=== PATIENT | female | born 1940 | race Caucasian/White ===

== ENCOUNTER 2016-05-26 09:56 | Outpatient (CLI) | payer MEDICARE, OTHER | END 2016-05-26 09:57 | disposition home or self-care (01) | DX: I48.91 Unspecified atrial fibrillation (principal); I10 Essential (primary) hypertension; G61.9 Inflammatory polyneuropathy, unspecified ==

== ENCOUNTER 2016-05-31 06:46 | Outpatient (CLI) | payer MEDICARE, OTHER | END 2016-05-31 06:47 | disposition home or self-care (01) | DX: R31.9 Hematuria, unspecified (principal) ==

== ENCOUNTER 2016-06-18 11:17 | Outpatient (CLI) | payer MEDICARE, OTHER | END 2016-06-18 11:18 | disposition home or self-care (01) | DX: R31.9 Hematuria, unspecified (principal); N28.1 Cyst of kidney, acquired ==

== ENCOUNTER 2016-06-25 10:58 | Outpatient (CLI) | payer MEDICARE, OTHER ==
[2016-06-25] MEDS ORDERED: IOPAMIDOL-300 100 ML VIAL IVP ONE (12:12)
== END 2016-06-25 10:59 | disposition home or self-care (01) ==
DX: R31.9 Hematuria, unspecified (principal)
CPT/HCPCS: 74170; Q9967

== ENCOUNTER 2016-08-31 13:56 | Outpatient (CLI) | payer MEDICARE, OTHER ==
--- NOTE | 2016-09-02 18:00 | Mammography Report ---
DIGITAL SCREENING MAMMOGRAM: 08/31/2016 CLINICAL INDICATION: A 76-year-old with family history of breast cancer, for screening. COMPARISON: 07/2015, 03/2014, 12/2012, 11/2011, 08/2010, 08/2009, 08/2008, 06/2007, 06/2006. TECHNIQUE: Routine CC and MLO projections were obtained of the breasts. FINDINGS: The breasts again demonstrate scattered fibroglandular densities bilaterally. Coarse and p unctate, typically benign calcifications are present. No suspicious masses, clustered microcalcificat ions, or regions of architectural distortion are identified. IMPRESSION: BENIGN FINDINGS. RECOMMENDATION: ROUTINE ANNUAL SCREENING UNLESS OTHERWISE CLINICALLY INDICATED. BIRADS CATEGORY 2-BENIGN FINDINGS. STANDARD QUALIFYING STATEMENTS 1. This examination was reviewed with the aid of Computer-Aided Detection (CAD). 2. A negative or benign imaging report should not delay biopsy if clinically suspicious findings are present. Consider surgical consultation if warranted. More than 5% of cancers are not identified by i maging. 3. Dense breasts may obscure an underlying neoplasm. JOB #: [id number] EXT JOB #:[id number]
== END 2016-08-31 13:57 | disposition home or self-care (01) ==
LOC: DI.N 13:56
PROVIDERS: ATTEND Physician Assistant Medical
DX: Z12.31 Encounter for screening mammogram for malignant neoplasm of breast (principal); Z80.3 Family history of malignant neoplasm of breast
CPT/HCPCS: 77067

== ENCOUNTER 2016-09-21 11:50 | Outpatient (CLI) | payer MEDICARE, OTHER ==
[2016-09-21 20:07] LABS: THYROID STIMULATING HORMONE 0.18 uIU/mL (0.34-5.60)
== END 2016-09-21 11:51 | disposition home or self-care (01) ==
LOC: LAB.WCP 11:50
PROVIDERS: ATTEND Physician Assistant Medical
DX: I48.91 Unspecified atrial fibrillation (principal)
CPT/HCPCS: 36415; 84439; 84443

== ENCOUNTER 2016-11-25 11:00 | Outpatient (CLI) | payer MEDICARE, OTHER ==
[2016-11-25 20:10] LABS: THYROID STIMULATING HORMONE 0.25 uIU/mL (0.34-5.60)
== END 2016-11-25 11:01 | disposition home or self-care (01) ==
LOC: LAB.WCP 11:00
PROVIDERS: ATTEND Nurse Practitioner
DX: E05.90 Thyrotoxicosis, unspecified without thyrotoxic crisis or storm (principal)
CPT/HCPCS: 36415; 84439; 84443

== ENCOUNTER 2017-02-22 10:38 | Emergency (ER) | payer MEDICARE, OTHER ==
[2017-02-22 11:44] LABS: BASOPHILS % (AUTO) 1.4 %; EOSINOPHILS % (AUTO) 1.1 %; HGB - HEMOGLOBIN 12.7 g/dL (12.0-16.0); LYMPHOCYTES # (AUTO) 0.8 10^3/uL (1.5-3.5); MEAN CORPUSCULAR HEMOGLOBIN 31.4 pg (27.0-31.0); MEAN CORPUSCULAR HGB CONC 33.8 g/dL (32.0-36.0); MEAN CORPUSCULAR VOLUME 92.9 fL (81.0-99.0); MEAN PLATELET VOLUME 7.3 fL (7.9-10.8); MONOCYTES # (AUTO) 0.4 10^3/uL (0.0-1.0); MONOCYTES % (AUTO) 11.8 %; NEUTROPHILS # (AUTO) 2.2 10^3/uL (1.5-6.6); NEUTROPHILS % (AUTO) 62.7 %; PLT - PLATELET COUNT 206 10^3/uL (130-450); RED BLOOD COUNT 4.04 10^6/uL (4.20-5.40); WHITE BLOOD COUNT 3.5 x10^3/uL (4.8-10.8)
[2017-02-22 11:49] LABS: CALCIUM 8.8 mg/dL (8.5-10.3); CREATININE 0.9 mg/dL (0.4-1.0)
[2017-02-22 12:15] LABS: INR 1.7 (0.8-1.2)
--- NOTE | 2017-02-22 12:26 | ED Physician Documentation ---
PD HPI FOCAL NEURO - Stated complaint Stated Complaint: R SIDE LIP AND FINGER TINGLING,DOUBLE VISION - Chief complaint Chief Complaint: Neuro - History obtained from History obtained from: Patient, Family - History of Present Illness Timing - onset: Last night Timing - duration: Hours (16) Timing - details: Gradual onset Severity of deficit: Mild Weakness: No: Face, Arm, Hand, Leg, Foot, Right, Left Numbness: Face (R lower lip only), Hand (R thumb and index finger, tips of fingers only) Associated symptoms: No: Headache, Nausea / vomiting, Seizure, Syncope, Fall, Head injury, Chest pain, Neck pain, Back pain, Fever Contributing factors: positive: Anticoagulated (warfarin), Atrial fibrillation, Prosthetic heart valve Baseline status: positive: A&OX3, ambulatory, indep Similar symptoms before: Diagnosis (neuropathy) Recently seen: Not recently seen Review of Systems Ten Systems: 10 systems reviewed and negative Constitutional: denies: Fever, Chills Eyes: denies: Photophobia Ears: denies: Ear pain Nose: denies: Rhinorrhea / runny nose, Congestion Throat: denies: Sore throat Cardiac: denies: Chest pain / pressure Respiratory: denies: Cough GI: denies: Abdominal Pain, Nausea, Vomiting, Diarrhea Skin: denies: Rash Musculoskeletal: denies: Neck pain, Back pain Neurologic: denies: Numbness, Confused, Altered mental status, Headache PD PAST MEDICAL HISTORY - Past Medical History Past Medical History: Yes Cardiovascular: Congestive heart failure, Atrial flutter, Atrial fibrillation, Valve disorder Respiratory: Sleep apnea Endocrine/Autoimmune: None GI: None : None HEENT: Glaucoma, Other Psych: None Musculoskeletal: Osteoarthritis Derm: None - Past Surgical History Past Surgical 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 Cardiovascular: Valve replacement HEENT: Detached retina repair - Present Medications Home Medications: Ambulatory Orders Medication Instructions Recorded Confirmed Ascorbic Acid [Vitamin C] 500 mg 05/14/15 Aspirin [Moni Chewable Aspirin] 81 mg 05/14/15 Brimonidine Tartrate [Alphagan P] 05/14/15 Cholecalciferol (Vitamin D3) 1,000 unit 05/14/15 [Vitamin D] Dorzolamide HCl/Timolol Maleat 05/14/15 [Dorzolamide-Timolol Eye Drops] Duloxetine HCl [Cymbalta] 60 mg 05/14/15 Ipratropium [place] [Atrovent] 05/14/15 Warfarin Sodium [Coumadin] 5 mg 05/14/15 Zolpidem [Ambien] 10 mg 05/14/15 Carvedilol 3.125 mg PO BID 02/22/17 02/22/17 - Allergies Allergies/Adverse Reactions: Allergies Allergy/AdvReac Type Severity Reaction Status Date / Time No Known Drug Allergies Allergy Verified 05/14/15 11:02 - Social History Does the pt smoke?: No Smoking Status: Never smoker Does the pt drink ETOH?: Yes Does the pt have substance abuse?: No - Immunizations Immunizations are current?: Yes - POLST Patient has POLST: Yes PD ED PE NORMAL - Vitals Vital signs reviewed: Yes - General General: Alert and oriented X 3, No acute distress - HEENT HEENT: Moist mucous membranes - Neck Neck: Supple, no meningeal sign - Cardiac Cardiac: RRR, Strong equal pulses - Respiratory Respiratory: No respiratory distress, Clear bilaterally - Abdomen Abdomen: Soft, Non tender, Non distended - Derm Derm: Warm and dry, No rash - Extremities Extremities: No tenderness to palpate, Normal ROM s pain - Neuro Neuro: Alert and oriented X 3, food counselor 2-12 intact, No motor deficit, Normal speech , Other (B LE neuropathy and decreased sensation. normal sensation over the hand and arm of the RUE and LUE. ) - Psych Psych: Normal mood, Normal affect NIHSS - Time Time: 12:10 - Level of Consciousness Level of consciousness: (0) Alert, Keenly responsive LOC Questions: (0) Answers both Q's correct LOC Commands: (0) Performs both correctly - Gaze Best Gaze: (0) Normal - Visual Visual: (0) No loss - Facial Palsy Facial Palsy: (0) Normal, symmetrical movement - Motor Arms (both separate) Motor Arm (right): (0) No drift Motor Arm (left): (0) No drift - Motor Legs (both separate) Motor Leg (right): (0) No drift Motor Leg (left): (0) No drift - Limb Ataxia Limb Ataxia: (0) Absent - Sensory Sensory: (0) Normal - Best Language Best Language: (0) No aphasia - Dysarthria Dysarthria: (0) Normal - Extinction and Inattention (formally neg Extinction and inattention: (0) No abnormality - Total Score/Results Total Score/Result: 0 Results - Vitals Vitals: Vital Signs - 24 hr 02/22/17 02/22/17 10:52 13:00 Temperature 36.9 C Heart Rate 52 L 61 Respiratory 18 14 Rate Blood Pressure 134/67 H 177/77 H O2 Saturation 99 100 Oxygen O2 Source Room air - EKG (time done) 1108 Rate: Rate (enter#) (70) Rhythm: Atrial fibrillation, Other (PVC) Clemons: Normal QRS: Normal Ischemia: Normal ST segments - Labs Labs: Laboratory Tests 02/22/17 02/22/17 02/22/17 11:34 11:34 11:34 WBC 3.5 L RBC 4.04 L Hgb 12.7 Hct 37.5 MCV 92.9 MCH 31.4 H MCHC 33.8 RDW 14.0 Plt Count 206 MPV 7.3 L Neut # 2.2 Lymph # 0.8 L Loving # 0.4 Eos # 0.0 Baso # 0.0 Absolute Nucleated RBC 0.00 Nucleated RBC % 0.0 PT 19.0 H INR 1.7 H Sodium 139 Potassium 4.0 Chloride 106 Carbon Dioxide 27 Anion Gap 6.0 BUN 15 Creatinine 0.9 Estimated GFR (MDRD) 61 L Glucose 96 Calcium 8.8 - Rads (name of study) head CT Radiology: Prelim report reviewed, EMP read contemporaneously, See rad report ( Generalized age-related cortical atrophic changes without evidence of acute intracranial abnormality) PD MEDICAL DECISION MAKING - ED course Complexity details: reviewed results, re-evaluated patient, considered differential, d/w patient ED course: Patient is a 76-year-old female who presents to the emergency department with what appear to be paresthesias that do not appear to be ischemic related changes. No acute findings on head CT, laboratory testing. No evidence of stroke. We will have her follow-up with her doctor for further evaluation and care. Neurologically normal in the emergency department. Patient and family counseled regarding signs and symptoms for which I believe and urgent re- evaluation would be necessary. Patient with good understanding of and agreement to plan and is comfortable going home at this time This document was made in part using voice recognition software. While efforts are made to proofread this document, sound alike and grammatical errors may occur. Departure - Departure Disposition: Home, Self Care Clinical Impression: Paresthesia Condition: Good Instructions: ED Paraesthesias Follow-Up: Dori Witt PA-C [Primary Care Provider] - Within 1 week Comments: Return if you worsen. The cause of your symptoms is unclear today. Your doctor may want to do an MRI as an outpatient or other tests. Your tests today are normal. Discharge Date/Time: 02/22/17 13:26
--- NOTE | 2017-02-22 12:59 | CT Report ---
EXAM: CT HEAD EXAM DATE: 02/22/2017 12:45 PM. CLINICAL HISTORY: R lip and hand numbness x 16 hours. COMPARISON: None. TECHNIQUE: Multiaxial CT images were obtained from the foramen magnum to the vertex. Reformats: Coron al. IV contrast: None. In accordance with CT protocol optimization, one or more of the following dose reduction techniques w ere utilized for this exam: automated exposure control, adjustment of mA and/or KV based on patient s ize, or use of iterative reconstructive technique. FINDINGS: Parenchyma: No intraparenchymal hemorrhage. No evidence of mass, midline shift, or CT findings of acu te infarction. Rojas-white differentiation is distinct. Diffuse chronic microangiopathic white matter changes are evident. Extraaxial Spaces: Normal for age. No subdural or epidural collections identified. Ventricles: The ventricles and cortical sulci are enlarged, consistent with age-related tissue loss. Sinuses and orbits: Right globe band. Left sphenoid sinus mucosal thickening. Bones: No evidence of fracture or calvarial defect. Other: None. IMPRESSION: Generalized age-related cortical atrophic changes without evidence of acute intracranial abnormality. [facility] Referring Provider Line: [phone] SITE ID: [id number]
--- NOTE | 2017-02-22 12:59 | CT Preliminary Report ---
Exam: CT HEAD W/O IMPRESSION: Generalized age-related cortical atrophic changes without evidence of acute intracranial abnormality. [facility] SITE ID: [id number]
[2017-02-22 13:00] VITALS: BP 177/77
== END 2017-02-22 13:26 | disposition home or self-care (01) ==
LOC: ED 10:38
DX: R20.2 Paresthesia of skin (principal); R00.8 Other abnormalities of heart beat; I48.91 Unspecified atrial fibrillation; Z79.01 Long term (current) use of anticoagulants; Z95.2 Presence of prosthetic heart valve; Z79.82 Long term (current) use of aspirin
CPT/HCPCS: 36415; 70450; 80048; 85025; 85610; 93005; 99283; 99284

== ENCOUNTER 2017-05-24 08:00 | Outpatient (CLI) | payer MEDICARE, OTHER ==
[2017-05-24 19:12] LABS: BASOPHILS # (AUTO) 0.1 10^3/uL (0.0-0.1); BASOPHILS % (AUTO) 1.2 %; EOSINOPHILS % (AUTO) 0.9 %; HGB - HEMOGLOBIN 13.1 g/dL (12.0-16.0); LYMPHOCYTES # (AUTO) 1.2 10^3/uL (1.5-3.5); LYMPHOCYTES % (AUTO) 27.5 %; MEAN CORPUSCULAR HGB CONC 33.4 g/dL (32.0-36.0); MEAN CORPUSCULAR VOLUME 92.9 fL (81.0-99.0); MEAN PLATELET VOLUME 8.3 fL (7.9-10.8); MONOCYTES # (AUTO) 0.4 10^3/uL (0.0-1.0); MONOCYTES % (AUTO) 10.7 %; NEUTROPHILS # (AUTO) 2.5 10^3/uL (1.5-6.6); NEUTROPHILS % (AUTO) 59.7 %; PLT - PLATELET COUNT 219 10^3/uL (130-450); RED BLOOD COUNT 4.22 10^6/uL (4.20-5.40); RED CELL DISTRIBUTION WIDTH 14.4 % (12.0-15.0); WHITE BLOOD COUNT 4.2 x10^3/uL (4.8-10.8)
[2017-05-24 19:18] LABS: ALBUMIN 4.5 g/dL (3.2-5.5); ALBUMIN/GLOBULIN RATIO 1.8 (1.0-2.2); BILIRUBIN,TOTAL 0.7 mg/dL (0.2-1.0); CALCIUM 9.2 mg/dL (8.5-10.3); CREATININE 0.9 mg/dL (0.4-1.0)
== END 2017-05-24 08:01 ==
LOC: LAB.WCP 08:00
PROVIDERS: ATTEND Physician Assistant
DX: R10.31 Right lower quadrant pain (principal)
CPT/HCPCS: 36415; 80053; 85025

== ENCOUNTER 2017-06-07 09:38 | Outpatient (CLI) | payer MEDICARE, OTHER ==
[2017-06-07] MEDS ORDERED: IOPAMIDOL-300 50 ML VIAL ONE (09:56)
[2017-06-07] MEDS ORDERED: IOPAMIDOL-300 100 ML VIAL ONE (09:56)
[2017-06-07] MEDS ORDERED: IOPAMIDOL-300 50 ML VIAL PO ONE (11:00)
[2017-06-07] MEDS ORDERED: IOPAMIDOL-300 100 ML VIAL IVP ONE (11:00)
--- NOTE | 2017-06-07 15:06 | CT Report ---
CT ABDOMEN AND PELVIS WITH CONTRAST: 06/07/2017 INDICATION: Right lower quadrant pain. TECHNIQUE: Axial CT images of the abdomen and pelvis were obtained with 100 mL Isovue 300 intravenously as well as oral contrast. FINDINGS: Limited evaluation of the lung bases is unremarkable. ABDOMEN: Images were obtained in the early arterial phase of enhancement. The liver appears heterogeneous, likely related to phase of enhancement. The spleen, pancreas, kidneys and adrenal glands are unremarkable, allowing for phase of enhancement. The gallbladder is not dilated. No bowel dilatation, free gas, or free fluid is present. No abdominal adenopathy is seen. PELVIS: The appendix is seen in the right lower quadrant, and is normal in caliber. The pelvic organs appear unremarkable. No pelvic adenopathy or free fluid is present. Osseous structures demonstrate degenerative changes. IMPRESSION: NORMAL APPENDIX. NO EVIDENT ETIOLOGY FOR PATIENT'S RIGHT LOWER QUADRANT PAIN. TD: 06/07/2017 15:05
== END 2017-06-07 09:39 | disposition home or self-care (01) ==
LOC: DI 09:38
PROVIDERS: ATTEND Physician Assistant
DX: R10.31 Right lower quadrant pain (principal)
CPT/HCPCS: 74177; Q9967

== ENCOUNTER 2017-07-05 16:57 | Outpatient (CLI) | payer MEDICARE, OTHER ==
--- NOTE | 2017-07-06 08:41 | Ultrasound Report ---
EXAM: ABDOMEN ULTRASOUND LIMITED EXAM DATE: 07/05/2017 05:12 PM. CLINICAL HISTORY: ABDOMINAL PAIN,RIGHT LOWER QUADRANT. Reported history of pain in the area for 6 wee ks followed by palpable lump for 2 weeks. COMPARISON: None. TECHNIQUE: Real-time duplex scanning was performed with static images obtained. Region of interest: R ight lower quadrant. FINDINGS: In the region of the reported clinical finding at the right lower quadrant, there is a nonspecific, p oorly marginated subcutaneous area of inhomogeneous echogenicity measuring up to 1.5 x 1.2 x 1.4 cm w ith some apparent internal vascularity by color flow imaging. No drainable fluid collection. IMPRESSION: in the region of the reported clinical finding at the right lower quadrant, there is a nonspecific, p oorly marginated subcutaneous area of inhomogeneous echogenicity measuring up to 1.5 x 1.2 x 1.4 cm. No drainable fluid collection. Findings could reflect phlegmon/postinflammatory residua in the correc t clinical context. Mass lesion is not entirely excluded. [facility] Referring Provider Line: [phone] SITE ID: [id number]
== END 2017-07-05 16:58 | disposition home or self-care (01) ==
LOC: DI 16:57
PROVIDERS: ATTEND Physician Assistant
DX: R10.31 Right lower quadrant pain (principal)
CPT/HCPCS: 76705

== ENCOUNTER 2017-08-23 08:00 | Outpatient (CLI) | payer MEDICARE, OTHER ==
[2017-08-23 13:44] LABS: THYROID STIMULATING HORMONE 0.11 uIU/mL (0.34-5.60)
[2017-08-23 13:53] LABS: CHOL/HDL RATIO 2.9 (<4.4); CHOLESTEROL 187 mg/dL; HDL CHOLESTEROL 65 mg/dL; LDL CHOLESTEROL,CALCULATED 112 mg/dL; LDL/HDL RATIO 1.7 (<4.4); VLDL CHOLESTEROL 10 mg/dL
[2017-08-23 14:20] LABS: FREE T4 (FREE THYROXINE) 1.25 ng/dL (0.58-1.64)
== END 2017-08-23 08:01 | disposition home or self-care (01) ==
LOC: LAB.WCP 08:00
PROVIDERS: ATTEND Physician Assistant Medical
DX: I48.91 Unspecified atrial fibrillation (principal); E05.90 Thyrotoxicosis, unspecified without thyrotoxic crisis or storm
CPT/HCPCS: 36415; 80061; 83721; 84439; 84443

== ENCOUNTER 2017-08-26 13:15 | Emergency (ER) | payer MEDICARE, OTHER ==
[2017-08-26] MEDS ORDERED: SODIUM CHLORIDE 0.9% 500 ML IV ONE (13:43)
--- NOTE | 2017-08-26 13:46 | ED Physician Documentation ---
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 She really gets dizzy episodes, she was feeling fine this morning but came out of the shower and bent over and started to feel lightheaded and she lowered herself down into the ground without injury. She persistently felt dizzy for about 15 minutes but now feels back to normal. There is no associated chest pain or trouble breathing, no pedal edema.) Review of Systems Ten Systems: 10 systems reviewed and negative Constitutional: denies: Fever, Chills Cardiac: denies: Chest pain / pressure, Palpitations Respiratory: denies: Dyspnea, Cough GI: denies: Abdominal Pain, Nausea, Vomiting PD PAST MEDICAL HISTORY - Past Medical History Past Medical History: Yes Cardiovascular: Congestive heart failure, Atrial flutter, Atrial fibrillation, Valve disorder Respiratory: Sleep apnea Endocrine/Autoimmune: None GI: None : None HEENT: Glaucoma, Other Psych: None Musculoskeletal: Osteoarthritis Derm: None - Past Surgical History 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 Surgical 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 Cardiovascular: Valve replacement HEENT: Detached retina repair - Present Medications Home Medications: Ambulatory Orders Medication Instructions Recorded Confirmed Ascorbic Acid [Vitamin C] 500 mg 05/14/15 Aspirin [Moni Chewable Aspirin] 81 mg 05/14/15 Brimonidine Tartrate [Alphagan P] 05/14/15 Cholecalciferol (Vitamin D3) 1,000 unit 05/14/15 [Vitamin D] Dorzolamide HCl/Timolol Maleat 05/14/15 [Dorzolamide-Timolol Eye Drops] Duloxetine HCl [Cymbalta] 60 mg 05/14/15 Ipratropium [place] [Atrovent] 05/14/15 Warfarin Sodium [Coumadin] 5 mg 05/14/15 Zolpidem [Ambien] 10 mg 05/14/15 Carvedilol 3.125 mg PO BID 02/22/17 02/22/17 - Allergies Allergies/Adverse Reactions: Allergies Allergy/AdvReac Type Severity Reaction Status Date / Time No Known Drug Allergies Allergy Verified 05/14/15 11:02 - Social History Does the pt smoke?: No Smoking Status: Never smoker Does the pt drink ETOH?: Yes Does the pt have substance abuse?: No - Family History Family history: reports: Non contributory - Immunizations Immunizations are current?: Yes - POLST Patient has POLST: Yes PD ED PE NORMAL - Vitals Vital signs reviewed: Yes - General General: Alert and oriented X 3, No acute distress - HEENT HEENT: PERRL, EOMI - Neck Neck: Supple, no meningeal sign, No bony TTP - Cardiac Cardiac: RRR (Click with S1) - Respiratory Respiratory: No respiratory distress, Clear bilaterally - Abdomen Abdomen: Normal bowel sounds, Soft, Non tender - Back Back: No CVA TTP, No spinal TTP - Derm Derm: Normal color, Warm and dry - Extremities Extremities: No edema, No calf tenderness / cord - Neuro Neuro: Alert and oriented X 3, Normal speech Results - Vitals Vitals: Vital Signs - 24 hr 08/26/17 08/26/17 13:22 14:32 Temperature 36.1 C L Heart Rate 63 64 Respiratory 17 16 Rate Blood Pressure 183/88 H 163/84 H O2 Saturation 98 Oxygen O2 Source Room air - EKG (time done) 1325 Rate: Rate (enter#) (63) Rhythm: NSR [place]: Normal Intervals: Normal NV QRS: Normal Ischemia: Non specific changes - Labs Labs: Laboratory Tests 08/26/17 08/26/17 08/26/17 13:35 13:35 13:35 WBC 5.8 RBC 4.32 Hgb 13.5 Hct 40.5 MCV 93.9 MCH 31.3 H MCHC 33.4 RDW 14.0 Plt Count 195 MPV 8.4 Neut # (Auto) 4.9 Lymph # (Auto) 0.5 L Mckean # (Auto) 0.3 Eos # (Auto) 0.0 Baso # (Auto) 0.0 Absolute Nucleated RBC 0.00 Nucleated RBC % 0.0 PT 23.9 H INR 2.2 H Sodium 136 Potassium 3.7 Chloride 103 Carbon Dioxide 24 Anion Gap 9.0 BUN 19 Creatinine 0.9 Estimated GFR (MDRD) 61 L Glucose 173 H Calcium 9.1 Total Bilirubin 1.0 AST 31 ALT 19 Alkaline Phosphatase 74 Troponin I Total Protein 7.2 Albumin 4.0 Globulin 3.2 Albumin/Globulin Ratio 1.3 Lipase 37 08/26/17 13:35 WBC RBC Hgb Hct MCV MCH MCHC RDW Plt Count MPV Neut # (Auto) Lymph # (Auto) Mckean # (Auto) Eos # (Auto) Baso # (Auto) Absolute Nucleated RBC Nucleated RBC % PT INR Sodium Potassium Chloride Carbon Dioxide Anion Gap BUN Creatinine Estimated GFR (MDRD) Glucose Calcium Total Bilirubin AST ALT Alkaline Phosphatase Troponin I < 0.04 Total Protein Albumin Globulin Albumin/Globulin Ratio Lipase PD MEDICAL DECISION MAKING - ED course ED course: 77-year-old woman with history of prosthetic heart valve presents with a lightheaded episode that had resolved here. There is no associated chest pain or trouble breathing and she was remained in a symptomatically on the emergency department without significant tachycardia or bradycardia arrhythmias. Her diagnostics were negative with therapeutic INR. - Sepsis Event Vital Signs: Vital Signs - 24 hr 08/26/17 08/26/17 13:22 14:32 Temperature 36.1 C L Heart Rate 63 64 Respiratory 17 16 Rate Blood Pressure 183/88 H 163/84 H O2 Saturation 98 Oxygen O2 Source Room air Departure - Departure Disposition: 01 Home, Self Care Clinical Impression: Lightheaded, Adequate anticoagulation on anticoagulant therapy Condition: Good Record reviewed to determine appropriate education?: Yes Instructions: ED Near Syncope Unkn Comments: Call your doctor to arrange a follow-up appointment, make the next available appointment. In the interim, return anytime if worse or if new symptoms develop. Your blood pressure was elevated today on check into the emergency department. This does not mean that you have hypertension, it is a common phenomenon to come to the emergency department and have elevated blood pressure. I recommend that you see your primary care physician within the week to have it rechecked when you are feeling better.
[2017-08-26 14:14] LABS: BASOPHILS % (AUTO) 0.5 %; EOSINOPHILS % (AUTO) 0.3 %; HGB - HEMOGLOBIN 13.5 g/dL (12.0-16.0); LYMPHOCYTES # (AUTO) 0.5 10^3/uL (1.5-3.5); LYMPHOCYTES % (AUTO) 9.1 %; MEAN CORPUSCULAR HEMOGLOBIN 31.3 pg (27.0-31.0); MEAN CORPUSCULAR HGB CONC 33.4 g/dL (32.0-36.0); MEAN CORPUSCULAR VOLUME 93.9 fL (81.0-99.0); MEAN PLATELET VOLUME 8.4 fL (7.9-10.8); MONOCYTES # (AUTO) 0.3 10^3/uL (0.0-1.0); MONOCYTES % (AUTO) 5.5 %; NEUTROPHILS # (AUTO) 4.9 10^3/uL (1.5-6.6); NEUTROPHILS % (AUTO) 84.6 %; PLT - PLATELET COUNT 195 10^3/uL (130-450); RED BLOOD COUNT 4.32 10^6/uL (4.20-5.40); WHITE BLOOD COUNT 5.8 x10^3/uL (4.8-10.8)
[2017-08-26 14:18] LABS: INR 2.2 (0.8-1.2); PT - PROTHROMBIN TIME 23.9 secs (9.9-12.6)
[2017-08-26 14:37] VITALS: BP 163/84
[2017-08-26 14:44] LABS: CREATININE 0.9 mg/dL (0.4-1.0)
[2017-08-26 14:58] LABS: CALCIUM 9.1 mg/dL (8.5-10.3)
[2017-08-26 15:06] LABS: TOTAL PROTEIN 7.2 g/dL (6.7-8.2)
[2017-08-26 15:07] LABS: ALBUMIN/GLOBULIN RATIO 1.3 (1.0-2.2)
== END 2017-08-26 15:38 | disposition home or self-care (01) ==
LOC: ED 13:15
DX: R42 Dizziness and giddiness (principal); R03.0 Elevated blood-pressure reading, without diagnosis of hypertension; Z95.2 Presence of prosthetic heart valve; Z79.01 Long term (current) use of anticoagulants; Z79.82 Long term (current) use of aspirin
CPT/HCPCS: 36415; 80053; 83690; 84484; 85025; 85610; 93005; 96360; 96361; 99284

== ENCOUNTER 2017-11-28 22:35 | Outpatient (CLI) | payer MEDICARE, OTHER ==
[2017-11-28 18:46] LABS: INR 4.2 (0.8-1.2); PT - PROTHROMBIN TIME 44.6 secs (9.9-12.6)
== END 2017-11-28 22:36 | disposition home or self-care (01) ==
LOC: LAB.WCP 22:35
PROVIDERS: ATTEND Physician Assistant Medical
DX: I48.91 Unspecified atrial fibrillation (principal)
CPT/HCPCS: 36415; 85610

== ENCOUNTER 2018-03-05 14:54 | Outpatient (CLI) | payer MEDICARE, OTHER ==
--- NOTE | 2018-03-05 16:22 | XRAY Report ---
Reason: PERIPHERAL EDEMA/FOOT PAIN,RIGHT Procedure Date: 03/05/2018 Accession Number: [id number] / [id number] Procedure: XR - Foot 2 View RT CPT Code: FULL RESULT: EXAM: RIGHT FOOT RADIOGRAPHY EXAM DATE: 03/05/2018 03:42 PM. CLINICAL HISTORY: PERIPHERAL EDEMA/FOOT PAIN,RIGHT. COMPARISON: FOOT 3 VIEW LT 02/09/2018 2:08 PM. TECHNIQUE: 2 views. FINDINGS: Bones: No fracture or focal bony lesion. Joints: No evidence of dislocation. Soft Tissues: No unexpected soft tissue findings. IMPRESSION: No evidence of fracture or dislocation. [facility]
--- NOTE | 2018-03-05 16:28 | Ultrasound Report ---
Reason: PERIPHERAL EDEMA/FOOT PAIN,RIGHT Procedure Date: 03/05/2018 Accession Number: [id number] / [id number] Procedure: US - Duplex Ext Veins Bilateral CPT Code: FULL RESULT: EXAM: BILATERAL LOWER EXTREMITY VENOUS ULTRASOUND EXAM DATE: 03/05/2018 03:33 PM. CLINICAL HISTORY: PERIPHERAL EDEMA/FOOT PAIN,RIGHT. COMPARISON: None. TECHNIQUE: Real-time sonographic vascular imaging was performed by the cinder crusher operator through the lower extremities utilizing both color-flow and Doppler spectral analysis. Multiple provider service representative static images were saved for review. FINDINGS: Right: Common Femoral Vein (CFV): Normal. CFV-GSV Junction: Normal. Profunda Femoral Vein (PFV): Normal. Femoral Vein (FV) Prox: Normal. Femoral Vein (FV) Mid: Normal. Femoral Vein (FV) Dist: Normal. Popliteal Vein: Normal. Posterior Tibial Veins: Normal. Peroneal Veins: Normal. Left: Common Femoral Vein (CFV): Normal. CFV-GSV Junction: Normal. Profunda Femoral Vein (PFV): Normal. Femoral Vein (FV) Prox: Normal. Femoral Vein (FV) Mid: Normal. Femoral Vein (FV) Dist: Normal. Popliteal Vein: Normal. Posterior Tibial Veins: Normal. Peroneal Veins: Normal. Other: None. IMPRESSION: No evidence for deep venous thrombosis bilaterally. [facility]
== END 2018-03-05 14:55 | disposition home or self-care (01) ==
LOC: DI 14:54
PROVIDERS: ATTEND Physician Assistant Medical
DX: R60.0 Localized edema (principal); M79.671 Pain in right foot
CPT/HCPCS: 93970

== ENCOUNTER 2018-04-16 08:00 | Outpatient (CLI) | payer MEDICARE, OTHER | END 2018-04-16 23:59 | disposition home or self-care (01) | LOC: LAB.WCP 08:00 | PROVIDERS: ATTEND Physician Assistant Medical | DX: I48.91 Unspecified atrial fibrillation (principal); Z79.01 Long term (current) use of anticoagulants; Z95.2 Presence of prosthetic heart valve ==

== ENCOUNTER 2018-04-23 08:00 | Outpatient (CLI) | payer MEDICARE, OTHER | END 2018-04-23 23:59 | disposition home or self-care (01) | LOC: LAB.WCP 08:00 | PROVIDERS: ATTEND Physician Assistant Medical | DX: I48.91 Unspecified atrial fibrillation (principal); Z79.01 Long term (current) use of anticoagulants ==

== ENCOUNTER 2018-04-25 08:00 | Outpatient (CLI) | payer MEDICARE, OTHER | END 2018-04-25 23:59 | disposition home or self-care (01) | LOC: LAB.WCP 08:00 | PROVIDERS: ATTEND Physician Assistant Medical | DX: I48.91 Unspecified atrial fibrillation (principal); Z79.01 Long term (current) use of anticoagulants ==

== ENCOUNTER 2018-05-02 08:00 | Outpatient (CLI) | payer MEDICARE, OTHER | END 2018-05-02 23:59 | disposition home or self-care (01) | LOC: LAB.WCP 08:00 | PROVIDERS: ATTEND Physician Assistant Medical | DX: I48.91 Unspecified atrial fibrillation (principal); Z95.2 Presence of prosthetic heart valve; Z79.01 Long term (current) use of anticoagulants | CPT/HCPCS: 81025 ==

== ENCOUNTER 2018-05-16 08:00 | Outpatient (CLI) | payer MEDICARE, OTHER | END 2018-05-16 23:59 | disposition home or self-care (01) | LOC: LAB.WCP 08:00 | PROVIDERS: ATTEND Physician Assistant Medical | DX: I48.91 Unspecified atrial fibrillation (principal); Z79.01 Long term (current) use of anticoagulants | CPT/HCPCS: 81025 ==

== ENCOUNTER 2018-05-18 08:00 | Outpatient (CLI) | payer MEDICARE, OTHER | END 2018-05-18 23:59 | disposition home or self-care (01) | LOC: LAB.WCP 08:00 | PROVIDERS: ATTEND Family Medicine | DX: I48.91 Unspecified atrial fibrillation (principal); Z79.01 Long term (current) use of anticoagulants | CPT/HCPCS: 81025 ==

== ENCOUNTER 2018-05-25 08:00 | Outpatient (CLI) | payer MEDICARE, OTHER | END 2018-05-25 23:59 | disposition home or self-care (01) | LOC: LAB.WCP 08:00 | PROVIDERS: ATTEND Physician Assistant Medical | DX: I48.91 Unspecified atrial fibrillation (principal); Z95.2 Presence of prosthetic heart valve; Z79.01 Long term (current) use of anticoagulants ==

== ENCOUNTER 2018-06-08 08:00 | Outpatient (CLI) | payer MEDICARE, OTHER | END 2018-06-08 08:01 | disposition home or self-care (01) | LOC: LAB.WCP 08:00 | PROVIDERS: ATTEND Family Medicine | DX: I48.91 Unspecified atrial fibrillation (principal); Z95.2 Presence of prosthetic heart valve; Z79.01 Long term (current) use of anticoagulants | CPT/HCPCS: 81025 ==

== ENCOUNTER 2018-07-31 12:06 | Outpatient (CLI) | payer MEDICARE, OTHER ==
--- NOTE | 2018-08-01 08:43 | Mammography Report ---
Reason: SCREENING MAMMO Procedure Date: 07/31/2018 Accession Number: [id number] / [id number] Procedure: MGN - Screening Mammo Dig Bilat CPT Code: FULL RESULT: EXAM: Screening Mammo Dig Bilat DATE: 07/31/2018 12:29 PM CLINICAL HISTORY: Screening encounter. No reported risk factors. TECHNIQUE: (B) - Bilateral CC, laterally exaggerated CC, MLO views were obtained. COMPARISON: 08/31/2016 through 01/04/2013. PARENCHYMAL PATTERN: (D) - The breast(s) demonstrate(s) heterogeneously dense fibroglandular parenchyma. FINDINGS: There are typically benign vascular and coarse calcifications. There are no suspicious masses, calcifications, or areas of distortion. IMPRESSION: Benign findings. BI-RADS category 2. RECOMMENDATION: (ANNUAL) - Recommend routine annual screening mammography. BI-RADS CATEGORY: (2) - Benign Findings. STANDARD QUALIFYING STATEMENTS: 1. This examination was not reviewed with the aid of Computer-Aided Detection (CAD). 2. A negative or benign imaging report should not preclude biopsy if clinically suspicious findings are present. 3. Dense breasts may obscure an underlying neoplasm. 4. This examination was reviewed without the aid of 3D breast imaging (tomosynthesis).
== END 2018-07-31 12:07 | disposition home or self-care (01) ==
LOC: DI.N 12:06
DX: Z12.31 Encounter for screening mammogram for malignant neoplasm of breast (principal)
CPT/HCPCS: 77067

== ENCOUNTER 2018-08-23 08:00 | Outpatient (CLI) | payer MEDICARE, OTHER | END 2018-08-23 08:01 | disposition home or self-care (01) | LOC: LAB.WCP 08:00 | PROVIDERS: ATTEND Physician Assistant Medical | DX: I48.91 Unspecified atrial fibrillation (principal); Z95.2 Presence of prosthetic heart valve; Z79.01 Long term (current) use of anticoagulants ==

== ENCOUNTER 2018-10-04 08:00 | Outpatient (CLI) | payer MEDICARE, OTHER | END 2018-10-04 23:59 | disposition home or self-care (01) | LOC: LAB.WCP 08:00 | PROVIDERS: ATTEND Family Medicine | DX: I48.91 Unspecified atrial fibrillation (principal); Z79.01 Long term (current) use of anticoagulants ==

== ENCOUNTER 2018-10-31 08:00 | Outpatient (CLI) | payer MEDICARE, OTHER | END 2018-10-31 23:59 | disposition home or self-care (01) | LOC: LAB.WCP 08:00 | PROVIDERS: ATTEND Physician Assistant Medical | DX: I48.92 Unspecified atrial flutter (principal); Z79.01 Long term (current) use of anticoagulants ==

== ENCOUNTER 2018-11-28 08:00 | Outpatient (CLI) | payer MEDICARE, OTHER | END 2018-11-28 23:59 | disposition home or self-care (01) | LOC: LAB.WCP 08:00 | PROVIDERS: ATTEND Physician Assistant Medical | DX: Z79.01 Long term (current) use of anticoagulants (principal); Z98.890 Other specified postprocedural states; I48.92 Unspecified atrial flutter ==

== ENCOUNTER 2018-12-26 08:00 | Outpatient (CLI) | payer MEDICARE, OTHER | END 2018-12-26 23:59 | disposition home or self-care (01) | LOC: LAB.WCP 08:00 | PROVIDERS: ATTEND Physician Assistant Medical | DX: Z79.01 Long term (current) use of anticoagulants (principal); Z95.2 Presence of prosthetic heart valve; I48.91 Unspecified atrial fibrillation ==

== ENCOUNTER 2019-01-23 08:00 | Outpatient (CLI) | payer MEDICARE, OTHER | END 2019-01-23 23:59 | disposition home or self-care (01) | LOC: LAB.WCP 08:00 | PROVIDERS: ATTEND Physician Assistant Medical | DX: Z79.01 Long term (current) use of anticoagulants (principal); I48.91 Unspecified atrial fibrillation ==

== ENCOUNTER 2019-02-18 08:00 | Outpatient (CLI) | payer MEDICARE, OTHER | END 2019-02-18 23:59 | disposition home or self-care (01) | LOC: LAB.WCP 08:00 | PROVIDERS: ATTEND Physician Assistant Medical | DX: Z79.01 Long term (current) use of anticoagulants (principal); I48.91 Unspecified atrial fibrillation; Z95.4 Presence of other heart-valve replacement ==

== ENCOUNTER 2019-03-18 08:00 | Outpatient (CLI) | payer MEDICARE, OTHER | END 2019-03-18 23:59 | disposition home or self-care (01) | LOC: LAB.WCP 08:00 | PROVIDERS: ATTEND Physician Assistant Medical | DX: I48.92 Unspecified atrial flutter (principal); Z79.01 Long term (current) use of anticoagulants ==

== ENCOUNTER 2019-04-22 08:00 | Outpatient (CLI) | payer MEDICARE, OTHER | END 2019-04-22 23:59 | disposition home or self-care (01) | LOC: LAB.WCP 08:00 | PROVIDERS: ATTEND Physician Assistant Medical | DX: I48.92 Unspecified atrial flutter (principal); Z79.01 Long term (current) use of anticoagulants ==

== ENCOUNTER 2019-05-06 08:00 | Outpatient (CLI) | payer MEDICARE, OTHER | END 2019-05-06 23:59 | disposition home or self-care (01) | LOC: LAB.WCP 08:00 | PROVIDERS: ATTEND Family Medicine | DX: I48.92 Unspecified atrial flutter (principal); Z79.01 Long term (current) use of anticoagulants ==

== ENCOUNTER 2019-06-03 08:00 | Outpatient (CLI) | payer MEDICARE, OTHER | END 2019-06-03 23:59 | disposition home or self-care (01) | LOC: LAB.WCP 08:00 | PROVIDERS: ATTEND Physician Assistant Medical | DX: I48.92 Unspecified atrial flutter (principal); Z79.01 Long term (current) use of anticoagulants; I48.91 Unspecified atrial fibrillation ==

== ENCOUNTER 2019-07-01 08:00 | Outpatient (CLI) | payer MEDICARE, OTHER | END 2019-07-01 23:59 | disposition home or self-care (01) | LOC: LAB.WCP 08:00 | PROVIDERS: ATTEND Physician Assistant Medical | DX: I48.92 Unspecified atrial flutter (principal); Z79.01 Long term (current) use of anticoagulants ==

== ENCOUNTER 2019-07-29 08:00 | Outpatient (CLI) | payer MEDICARE, OTHER | END 2019-07-29 23:59 | disposition home or self-care (01) | LOC: LAB.WCP 08:00 | PROVIDERS: ATTEND Physician Assistant Medical | DX: I48.92 Unspecified atrial flutter (principal); Z79.01 Long term (current) use of anticoagulants ==

== ENCOUNTER 2019-09-27 08:00 | Outpatient (CLI) | payer MEDICARE, OTHER | END 2019-09-27 23:59 | disposition home or self-care (01) | LOC: LAB.WCP 08:00 | PROVIDERS: ATTEND Physician Assistant Medical | DX: I48.91 Unspecified atrial fibrillation (principal); Z79.01 Long term (current) use of anticoagulants ==

== ENCOUNTER 2019-10-31 08:00 | Outpatient (CLI) | payer MEDICARE, OTHER | END 2019-10-31 23:59 | disposition home or self-care (01) | LOC: LAB.WCP 08:00 | PROVIDERS: ATTEND Physician Assistant Medical | DX: Z79.01 Long term (current) use of anticoagulants (principal) ==

== ENCOUNTER 2019-11-08 08:00 | Outpatient (CLI) | payer MEDICARE, OTHER | END 2019-11-08 23:59 | disposition home or self-care (01) | LOC: LAB.WCP 08:00 | PROVIDERS: ATTEND Family Medicine | DX: Z79.01 Long term (current) use of anticoagulants (principal) ==

== ENCOUNTER 2019-11-13 11:24 | Outpatient (CLI) | payer MEDICARE, OTHER ==
--- NOTE | 2019-11-14 11:48 | Mammography Report ---
BILATERAL DIGITAL SCREENING MAMMOGRAM 3D/2D: 11/13/2019 CLINICAL: Routine screening. Comparison is made to exams dated: 07/31/2018 mammogram, 08/31/2016 mammogram, and 07/20/2015 mammogram - [facility]. The tissue of both breasts is heterogeneously dense. This may lower the sensitivity of mammography. No significant masses, calcifications, or other findings are seen in either breast. There has been no significant interval change. IMPRESSION: NEGATIVE There is no mammographic evidence of malignancy. A 1 year screening mammogram is recommended. This exam was interpreted at Station ID: [id number]. NOTE: For mammograms, a report in lay terms will be sent to the patient. Approximately 15% of breast malignancies will not be visualized mammographically. In the management of a palpable breast mass, a negative mammogram must not discourage biopsy of a clinically suspicious lesion. Electronically Signed By: Maria D guerra/sararad:11/13/2019 13:19:58 ACR BI-RADS Category 1: Negative 3341F PARENCHYMAL PATTERN: (D) - The breast(s) demonstrate(s) heterogeneously dense fibroglandular hermelinda wright. BI-RADS CATEGORY: (1) - 1 RECOMMENDATION: (ANNUAL) - Recommend routine annual screening mammography. [id number] 1 year screening LATERALITY: (B)
== END 2019-11-13 11:25 | disposition home or self-care (01) ==
LOC: DI.N 11:24
DX: Z12.31 Encounter for screening mammogram for malignant neoplasm of breast (principal)
CPT/HCPCS: 77063; 77067

== ENCOUNTER 2019-11-22 08:00 | Outpatient (CLI) | payer MEDICARE, OTHER | END 2019-11-22 23:59 | disposition home or self-care (01) | LOC: LAB.WCP 08:00 | PROVIDERS: ATTEND Physician Assistant Medical | DX: Z79.01 Long term (current) use of anticoagulants (principal) ==

== ENCOUNTER 2019-12-03 09:25 | Outpatient (CLI) | payer MEDICARE, OTHER ==
[2019-12-03 12:29] LABS: BASOPHILS % (AUTO) 1.2 %; EOSINOPHILS # (AUTO) 0.1 10^3/uL (0.0-0.7); EOSINOPHILS % (AUTO) 1.5 %; HGB - HEMOGLOBIN 13.5 g/dL (12.0-16.0); LYMPHOCYTES # (AUTO) 0.9 10^3/uL (1.5-3.5); LYMPHOCYTES % (AUTO) 25.3 %; MEAN CORPUSCULAR HEMOGLOBIN 30.5 pg (27.0-31.0); MEAN CORPUSCULAR HGB CONC 31.1 g/dL (32.0-36.0); MEAN PLATELET VOLUME 10.2 fL (7.9-10.8); MONOCYTES # (AUTO) 0.4 10^3/uL (0.0-1.0); MONOCYTES % (AUTO) 12.4 %; NEUTROPHILS % (AUTO) 59.3 %; PLT - PLATELET COUNT 209 10^3/uL (130-450); RED BLOOD COUNT 4.43 10^6/uL (4.20-5.40); RED CELL DISTRIBUTION WIDTH 13.4 % (12.0-15.0); WHITE BLOOD COUNT 3.4 x10^3/uL (4.8-10.8)
[2019-12-03 12:54] LABS: ALBUMIN 4.1 g/dL (3.2-5.5); ALBUMIN/GLOBULIN RATIO 1.6 (1.0-2.2); ALKALINE PHOSPHATASE 84 IU/L (42-121); ALT ALANINE AMINOTRANSFERASE 23 IU/L (10-60); AST ASPARTATE AMINOTRANSFERASE 33 IU/L (10-42); BUN - BLOOD UREA NITROGEN 13 mg/dL (6-20); CALCIUM 9.1 mg/dL (8.5-10.3); CARBON DIOXIDE - CO2 25 mmol/L (21-32); CHLORIDE 105 mmol/L (101-111); CHOLESTEROL 192 mg/dL; CREATININE 0.9 mg/dL (0.4-1.0); GLUCOSE 97 mg/dL (70-100); HDL CHOLESTEROL 64 mg/dL; LDL CHOLESTEROL,CALCULATED 115 mg/dL; LDL/HDL RATIO 1.8 (<4.4); SODIUM 142 mmol/L (135-145); TOTAL PROTEIN 6.7 g/dL (6.7-8.2); VLDL CHOLESTEROL 13 mg/dL
[2019-12-03 13:35] LABS: FREE T4 (FREE THYROXINE) 1.39 ng/dL (0.58-1.64)
[2019-12-03 13:52] LABS: HEMOGLOBIN A1c% 5.6 % (4.27-6.07)
== END 2019-12-03 23:59 | disposition home or self-care (01) ==
LOC: LAB.WCP 09:25
PROVIDERS: ATTEND Family Medicine
DX: I10 Essential (primary) hypertension (principal)
CPT/HCPCS: 36415; 80053; 80061; 83036; 83721; 84439; 84443; 85025

== ENCOUNTER 2019-12-06 08:00 | Outpatient (CLI) | payer MEDICARE, OTHER | END 2019-12-06 23:59 | disposition home or self-care (01) | LOC: LAB.WCP 08:00 | PROVIDERS: ATTEND Family Medicine | DX: Z79.01 Long term (current) use of anticoagulants (principal) ==

== ENCOUNTER 2019-12-23 08:00 | Outpatient (CLI) | payer MEDICARE, OTHER | END 2019-12-23 23:59 | disposition home or self-care (01) | LOC: LAB.WCP 08:00 | PROVIDERS: ATTEND Physician Assistant | DX: Z79.01 Long term (current) use of anticoagulants (principal) ==

== ENCOUNTER 2019-12-30 08:00 | Outpatient (CLI) | payer MEDICARE, OTHER | END 2019-12-30 23:59 | disposition home or self-care (01) | LOC: LAB.WCP 08:00 | PROVIDERS: ATTEND Physician Assistant | DX: Z79.01 Long term (current) use of anticoagulants (principal) ==

== ENCOUNTER 2020-01-13 08:00 | Outpatient (CLI) | payer MEDICARE, OTHER | END 2020-01-13 23:59 | disposition home or self-care (01) | LOC: LAB.WCP 08:00 | PROVIDERS: ATTEND Physician Assistant | DX: Z79.01 Long term (current) use of anticoagulants (principal) ==

== ENCOUNTER 2020-01-28 08:00 | Outpatient (CLI) | payer MEDICARE, OTHER | END 2020-01-28 23:59 | disposition home or self-care (01) | LOC: LAB.WCP 08:00 | PROVIDERS: ATTEND Physician Assistant Medical | DX: Z79.01 Long term (current) use of anticoagulants (principal) ==

== ENCOUNTER 2020-02-13 08:00 | Outpatient (CLI) | payer MEDICARE, OTHER | END 2020-02-13 23:59 | disposition home or self-care (01) | LOC: LAB.WCP 08:00 | PROVIDERS: ATTEND Physician Assistant Medical | DX: Z79.01 Long term (current) use of anticoagulants (principal) ==

== ENCOUNTER 2020-04-03 08:00 | Outpatient (CLI) | payer MEDICARE, OTHER | END 2020-04-03 23:59 | disposition home or self-care (01) | LOC: LAB.N 08:00 | PROVIDERS: ATTEND Physician Assistant Medical | DX: Z79.01 Long term (current) use of anticoagulants (principal); Z95.2 Presence of prosthetic heart valve ==

== ENCOUNTER 2020-06-03 08:00 | Outpatient (CLI) | payer MEDICARE, OTHER | END 2020-06-03 23:59 | disposition home or self-care (01) | LOC: LAB.N 08:00 | PROVIDERS: ATTEND Physician Assistant Medical | DX: I48.91 Unspecified atrial fibrillation (principal); Z79.01 Long term (current) use of anticoagulants ==

== ENCOUNTER 2020-06-12 08:00 | Outpatient (CLI) | payer MEDICARE, OTHER | END 2020-06-12 23:59 | disposition home or self-care (01) | LOC: LAB.N 08:00 | PROVIDERS: ATTEND Physician Assistant Medical | DX: I48.91 Unspecified atrial fibrillation (principal); Z95.2 Presence of prosthetic heart valve; Z79.01 Long term (current) use of anticoagulants ==

== ENCOUNTER 2020-06-19 08:00 | Outpatient (CLI) | payer MEDICARE, OTHER | END 2020-06-19 23:59 | disposition home or self-care (01) | LOC: LAB.N 08:00 | PROVIDERS: ATTEND Physician Assistant Medical | DX: Z95.2 Presence of prosthetic heart valve (principal); Z79.01 Long term (current) use of anticoagulants; I48.91 Unspecified atrial fibrillation ==

== ENCOUNTER 2020-07-06 08:00 | Outpatient (CLI) | payer MEDICARE, OTHER | END 2020-07-06 23:59 | disposition home or self-care (01) | LOC: LAB.N 08:00 | PROVIDERS: ATTEND Physician Assistant Medical | DX: I48.91 Unspecified atrial fibrillation (principal); Z95.2 Presence of prosthetic heart valve; Z79.01 Long term (current) use of anticoagulants ==

== ENCOUNTER 2020-07-22 08:00 | Outpatient (CLI) | payer MEDICARE, OTHER | END 2020-07-22 23:59 | disposition home or self-care (01) | LOC: LAB.N 08:00 | PROVIDERS: ATTEND Physician Assistant Medical | DX: I48.91 Unspecified atrial fibrillation (principal); Z95.2 Presence of prosthetic heart valve; Z79.01 Long term (current) use of anticoagulants ==

== ENCOUNTER 2020-08-05 08:00 | Outpatient (CLI) | payer MEDICARE, OTHER | END 2020-08-05 23:59 | disposition home or self-care (01) | LOC: LAB.F 08:00 | PROVIDERS: ATTEND Physician Assistant Medical | DX: Z95.2 Presence of prosthetic heart valve (principal); Z79.01 Long term (current) use of anticoagulants ==

== ENCOUNTER 2020-08-19 08:00 | Outpatient (CLI) | payer MEDICARE, OTHER | END 2020-08-19 23:59 | disposition home or self-care (01) | LOC: LAB.N 08:00 | PROVIDERS: ATTEND Physician Assistant Medical | DX: Z79.01 Long term (current) use of anticoagulants (principal); Z95.2 Presence of prosthetic heart valve ==

== ENCOUNTER 2020-09-02 08:00 | Outpatient (CLI) | payer MEDICARE, OTHER | END 2020-09-02 23:59 | disposition home or self-care (01) | LOC: LAB.N 08:00 | PROVIDERS: ATTEND Physician Assistant Medical | DX: I48.91 Unspecified atrial fibrillation (principal); Z95.2 Presence of prosthetic heart valve; Z79.01 Long term (current) use of anticoagulants ==

== ENCOUNTER 2020-09-09 08:00 | Outpatient (CLI) | payer MEDICARE, OTHER | END 2020-09-09 23:59 | disposition home or self-care (01) | LOC: LAB.N 08:00 | PROVIDERS: ATTEND Physician Assistant Medical | DX: I48.91 Unspecified atrial fibrillation (principal); Z95.2 Presence of prosthetic heart valve; Z79.01 Long term (current) use of anticoagulants ==

== ENCOUNTER 2020-10-02 08:00 | Outpatient (CLI) | payer MEDICARE, OTHER | END 2020-10-02 23:59 | disposition home or self-care (01) | LOC: LAB.N 08:00 | PROVIDERS: ATTEND Physician Assistant Medical | DX: I48.91 Unspecified atrial fibrillation (principal); Z95.2 Presence of prosthetic heart valve; Z79.01 Long term (current) use of anticoagulants ==

== ENCOUNTER 2020-10-13 08:00 | Outpatient (CLI) | payer MEDICARE, OTHER ==
[2020-10-13 11:53] LABS: BASOPHILS # (AUTO) 0.1 10^3/uL (0.0-0.1); BASOPHILS % (AUTO) 1.8 %; EOSINOPHILS % (AUTO) 1.2 %; HCT - HEMATOCRIT 42.1 % (37.0-47.0); HGB - HEMOGLOBIN 13.5 g/dL (12.0-16.0); LYMPHOCYTES # (AUTO) 0.8 10^3/uL (1.5-3.5); LYMPHOCYTES % (AUTO) 24.4 %; MEAN CORPUSCULAR HEMOGLOBIN 31.4 pg (27.0-31.0); MEAN CORPUSCULAR HGB CONC 32.1 g/dL (32.0-36.0); MEAN CORPUSCULAR VOLUME 97.9 fL (81.0-99.0); MEAN PLATELET VOLUME 10.2 fL (7.9-10.8); MONOCYTES # (AUTO) 0.4 10^3/uL (0.0-1.0); MONOCYTES % (AUTO) 12.3 %; NEUTROPHILS % (AUTO) 60.3 %; PLT - PLATELET COUNT 194 10^3/uL (130-450); RED CELL DISTRIBUTION WIDTH 13.5 % (12.0-15.0); WHITE BLOOD COUNT 3.3 x10^3/uL (4.8-10.8)
[2020-10-13 12:32] LABS: ALBUMIN 4.4 g/dL (3.2-5.5); ALBUMIN/GLOBULIN RATIO 1.6 (1.0-2.2); ALKALINE PHOSPHATASE 76 IU/L (42-121); ALT ALANINE AMINOTRANSFERASE 23 IU/L (10-60); AST ASPARTATE AMINOTRANSFERASE 36 IU/L (10-42); BILIRUBIN,TOTAL 1.3 mg/dL (0.2-1.0); BUN - BLOOD UREA NITROGEN 19 mg/dL (6-20); CALCIUM 9.3 mg/dL (8.5-10.3); CARBON DIOXIDE - CO2 25 mmol/L (21-32); CHLORIDE 106 mmol/L (101-111); CHOL/HDL RATIO 2.8 (<4.4); CHOLESTEROL 191 mg/dL; GFR - MDRD 53 (>89); GLUCOSE 98 mg/dL (70-100); HDL CHOLESTEROL 68 mg/dL; LDL CHOLESTEROL,CALCULATED 113 mg/dL; LDL/HDL RATIO 1.7 (<4.4); POTASSIUM 4.4 mmol/L (3.5-5.0); SODIUM 141 mmol/L (135-145); TOTAL PROTEIN 7.2 g/dL (6.7-8.2); TRIGLYCERIDES 49 mg/dL; VLDL CHOLESTEROL 10 mg/dL
[2020-10-13 12:39] LABS: THYROID STIMULATING HORMONE 0.35 uIU/mL (0.34-5.60)
[2020-10-13 12:46] LABS: FERRITIN 95.9 ng/mL (11.0-306.8)
== END 2020-10-13 23:59 | disposition home or self-care (01) ==
LOC: LAB.WCP 08:00
PROVIDERS: ATTEND Physician Assistant Medical
DX: R73.9 Hyperglycemia, unspecified (principal); R53.83 Other fatigue; I10 Essential (primary) hypertension
CPT/HCPCS: 36415; 80053; 80061; 82306; 82607; 82728; 83721; 84443; 85025

== ENCOUNTER 2020-10-14 08:00 | Outpatient (CLI) | payer MEDICARE, OTHER | END 2020-10-14 23:59 | disposition home or self-care (01) | LOC: LAB.WCP 08:00 | PROVIDERS: ATTEND Physician Assistant Medical | DX: I48.91 Unspecified atrial fibrillation (principal); Z95.2 Presence of prosthetic heart valve; Z79.01 Long term (current) use of anticoagulants ==

== ENCOUNTER 2020-11-18 08:00 | Outpatient (CLI) | payer MEDICARE, OTHER | END 2020-11-18 23:59 | disposition home or self-care (01) | LOC: LAB.N 08:00 | PROVIDERS: ATTEND Physician Assistant Medical | DX: Z79.01 Long term (current) use of anticoagulants (principal); I48.91 Unspecified atrial fibrillation; Z95.2 Presence of prosthetic heart valve ==

== ENCOUNTER 2020-11-25 08:00 | Outpatient (CLI) | payer MEDICARE, OTHER | END 2020-11-25 23:59 | disposition home or self-care (01) | LOC: LAB.N 08:00 | PROVIDERS: ATTEND Physician Assistant Medical | DX: Z79.01 Long term (current) use of anticoagulants (principal); Z95.2 Presence of prosthetic heart valve; I48.91 Unspecified atrial fibrillation ==

== ENCOUNTER 2020-11-30 08:00 | Outpatient (CLI) | payer MEDICARE, OTHER | END 2020-11-30 23:59 | disposition home or self-care (01) | LOC: LAB.WCP 08:00 | PROVIDERS: ATTEND Physician Assistant Medical | DX: Z95.2 Presence of prosthetic heart valve (principal); Z79.01 Long term (current) use of anticoagulants; I48.91 Unspecified atrial fibrillation ==

== ENCOUNTER 2020-12-09 08:00 | Outpatient (CLI) | payer MEDICARE, OTHER | END 2020-12-09 23:59 | disposition home or self-care (01) | LOC: LAB.N 08:00 | PROVIDERS: ATTEND Physician Assistant Medical | DX: F41.9 Anxiety disorder, unspecified (principal); I48.91 Unspecified atrial fibrillation; Z95.2 Presence of prosthetic heart valve ==

== ENCOUNTER 2020-12-25 08:00 | Outpatient (CLI) | payer MEDICARE, OTHER | END 2020-12-25 23:59 | disposition home or self-care (01) | LOC: LAB.N 08:00 | PROVIDERS: ATTEND Physician Assistant Medical | DX: I48.91 Unspecified atrial fibrillation (principal); Z95.2 Presence of prosthetic heart valve; Z79.01 Long term (current) use of anticoagulants ==

== ENCOUNTER 2021-01-02 12:14 | Outpatient (CLI) | payer MEDICARE, OTHER | END 2021-01-02 23:59 | disposition home or self-care (01) | LOC: LAB.N 12:14 | PROVIDERS: ATTEND Family Medicine | DX: R31.9 Hematuria, unspecified (principal) | CPT/HCPCS: 36416; 85610; 87086; 87181 ==

== ENCOUNTER 2021-01-13 08:00 | Outpatient (CLI) | payer MEDICARE, OTHER | END 2021-01-13 23:59 | disposition home or self-care (01) | LOC: LAB.N 08:00 | PROVIDERS: ATTEND Physician Assistant Medical | DX: I48.91 Unspecified atrial fibrillation (principal); Z95.2 Presence of prosthetic heart valve; Z79.01 Long term (current) use of anticoagulants ==

== ENCOUNTER 2021-01-27 08:00 | Outpatient (CLI) | payer MEDICARE, OTHER | END 2021-01-27 23:59 | disposition home or self-care (01) | LOC: LAB.N 08:00 | PROVIDERS: ATTEND Physician Assistant Medical | DX: I48.91 Unspecified atrial fibrillation (principal); Z95.2 Presence of prosthetic heart valve; Z79.01 Long term (current) use of anticoagulants ==

== ENCOUNTER 2021-03-17 08:00 | Outpatient (CLI) | payer MEDICARE, OTHER | END 2021-03-17 23:59 | disposition home or self-care (01) | LOC: LAB.N 08:00 | PROVIDERS: ATTEND Physician Assistant Medical | DX: I48.91 Unspecified atrial fibrillation (principal); Z95.2 Presence of prosthetic heart valve; Z79.01 Long term (current) use of anticoagulants ==

== ENCOUNTER 2021-04-16 08:00 | Outpatient (CLI) | payer MEDICARE, OTHER | END 2021-04-16 23:59 | disposition home or self-care (01) | LOC: LAB.WCP 08:00 | PROVIDERS: ATTEND Nurse Practitioner Family | DX: I48.91 Unspecified atrial fibrillation (principal); Z95.2 Presence of prosthetic heart valve; Z79.01 Long term (current) use of anticoagulants ==

== ENCOUNTER 2021-04-26 08:00 | Outpatient (CLI) | payer MEDICARE, OTHER | END 2021-04-26 23:59 | disposition home or self-care (01) | LOC: LAB.N 08:00 | PROVIDERS: ATTEND Physician Assistant Medical | DX: I48.91 Unspecified atrial fibrillation (principal); Z79.01 Long term (current) use of anticoagulants; Z95.2 Presence of prosthetic heart valve ==

== ENCOUNTER 2021-05-10 08:00 | Outpatient (CLI) | payer MEDICARE, OTHER | END 2021-05-10 23:59 | disposition home or self-care (01) | LOC: LAB.N 08:00 | PROVIDERS: ATTEND Physician Assistant Medical | DX: I48.91 Unspecified atrial fibrillation (principal); Z95.2 Presence of prosthetic heart valve; Z79.01 Long term (current) use of anticoagulants ==

== ENCOUNTER 2021-06-04 08:00 | Outpatient (CLI) | payer MEDICARE, OTHER | END 2021-06-04 23:59 | disposition home or self-care (01) | LOC: LAB.N 08:00 | PROVIDERS: ATTEND Physician Assistant Medical | DX: I48.91 Unspecified atrial fibrillation (principal); Z95.2 Presence of prosthetic heart valve; Z79.01 Long term (current) use of anticoagulants ==

== ENCOUNTER 2021-06-17 15:21 | Outpatient (CLI) | payer MEDICARE, OTHER ==
--- NOTE | 2021-06-18 16:21 | Mammography Report ---
BILATERAL DIGITAL SCREENING MAMMOGRAM: 06/17/2021 CLINICAL: Routine screening. Comparison is made to exams dated: 11/13/2019 mammogram, 07/31/2018 mammogram, 08/31/2016 mammogram, 07/20/2015 mammogram, 04/02/2014 ultrasound, and 04/02/2014 mammogram - [facility]. The tissue of both breasts is heterogeneously dense. This may lower the sensitivity of mammography. No significant masses, calcifications, or other findings are seen in either breast. IMPRESSION: NEGATIVE There is no mammographic evidence of malignancy. A 1 year screening mammogram is recommended. This exam was interpreted at Station ID: [id number]. NOTE: For mammograms, a report in lay terms will be sent to the patient. Approximately 15% of breast malignancies will not be visualized mammographically. In the management of a palpable breast mass, a negative mammogram must not discourage biopsy of a clinically suspicious lesion. Electronically Signed By: Brandon Lawrence M.D. aty/:06/18/2021 11:00:38 ACR BI-RADS Category 1: Negative 3341F PARENCHYMAL PATTERN: (D) - The breast(s) demonstrate(s) heterogeneously dense fibroglandular hermelinda wright. BI-RADS CATEGORY: (1) - 1 RECOMMENDATION: (ANNUAL) - Recommend routine annual screening mammography. [id number] 1 year screening LATERALITY: (B)
== END 2021-06-17 15:22 | disposition home or self-care (01) ==
LOC: DI.N 15:21
DX: Z12.31 Encounter for screening mammogram for malignant neoplasm of breast (principal)

== ENCOUNTER 2021-06-18 08:00 | Outpatient (CLI) | payer MEDICARE, OTHER | END 2021-06-18 23:59 | disposition home or self-care (01) | LOC: LAB.N 08:00 | PROVIDERS: ATTEND Physician Assistant Medical | DX: I48.91 Unspecified atrial fibrillation (principal); Z95.2 Presence of prosthetic heart valve; Z79.01 Long term (current) use of anticoagulants ==

== ENCOUNTER 2021-06-30 08:00 | Outpatient (CLI) | payer MEDICARE, OTHER | END 2021-06-30 23:59 | disposition home or self-care (01) | LOC: LAB.N 08:00 | PROVIDERS: ATTEND Physician Assistant Medical | DX: I48.91 Unspecified atrial fibrillation (principal); Z95.2 Presence of prosthetic heart valve; Z79.01 Long term (current) use of anticoagulants ==

== ENCOUNTER 2021-07-21 08:00 | Outpatient (CLI) | payer MEDICARE, OTHER | END 2021-07-21 23:59 | disposition home or self-care (01) | LOC: LAB.WCP 08:00 | PROVIDERS: ATTEND Physician Assistant Medical | DX: I48.91 Unspecified atrial fibrillation (principal); Z79.01 Long term (current) use of anticoagulants; Z95.2 Presence of prosthetic heart valve ==

== ENCOUNTER 2021-08-06 08:00 | Outpatient (CLI) | payer MEDICARE, OTHER | END 2021-08-06 23:59 | disposition home or self-care (01) | LOC: LAB.N 08:00 | PROVIDERS: ATTEND Family Medicine | DX: I48.91 Unspecified atrial fibrillation (principal); Z95.2 Presence of prosthetic heart valve; Z79.01 Long term (current) use of anticoagulants ==

== ENCOUNTER 2021-08-27 11:26 | Outpatient (CLI) | payer MEDICARE, OTHER | END 2021-08-27 11:27 | disposition home or self-care (01) | LOC: LAB.N 11:26 | PROVIDERS: ATTEND Physician Assistant Medical | DX: I48.91 Unspecified atrial fibrillation (principal); Z79.01 Long term (current) use of anticoagulants; Z95.2 Presence of prosthetic heart valve | CPT/HCPCS: 36416; 85610 ==

== ENCOUNTER 2021-09-01 08:00 | Outpatient (CLI) | payer MEDICARE, OTHER | END 2021-09-01 23:59 | disposition home or self-care (01) | LOC: LAB.N 08:00 | PROVIDERS: ATTEND Physician Assistant Medical | DX: I48.91 Unspecified atrial fibrillation (principal); Z95.2 Presence of prosthetic heart valve; Z79.01 Long term (current) use of anticoagulants ==

== ENCOUNTER 2021-10-22 08:00 | Outpatient (CLI) | payer MEDICARE, OTHER ==
--- NOTE | 2021-10-22 13:21 | XRAY Report ---
PROCEDURE: Hip 2 View LT INDICATIONS: HIP FX TECHNIQUE: 3 views of the hip were acquired. COMPARISON: 10/01/2021 FINDINGS: Bones: Patient is status post left total hip arthroplasty. Left hip alignment is anatomic. No fractu res or dislocations. No gross hardware loosening or failure. No suspicious bony lesions. The visuali zed pelvic ring appears intact. Soft tissues: No suspicious soft tissue calcifications or masses. IMPRESSION: Anatomic left hip alignment. No evidence of hardware complication. No acute fracture or dislocation. Reviewed by: Edenilson Diop MD on 10/22/2021 1:19 PM PDT Approved by: Edenilson Diop MD on 10/22/2021 1:19 PM PDT Station ID: [id number]
== END 2021-10-22 23:59 | disposition home or self-care (01) ==
LOC: DI.WOS 08:00
PROVIDERS: ATTEND Physician Assistant Surgical
DX: S72.002D Fracture of unspecified part of neck of left femur, subsequent encounter for closed fracture with routine healing (principal); Z96.642 Presence of left artificial hip joint

== ENCOUNTER 2021-11-05 16:28 | Outpatient (CLI) | payer MEDICARE, OTHER ==
[2021-11-05 22:07] LABS: INR > 10.0 (0.8-1.2); PT - PROTHROMBIN TIME > 120.0 secs (9.9-12.6)
== END 2021-11-05 16:29 | disposition home or self-care (01) ==
LOC: LAB.N 16:28
PROVIDERS: ATTEND Physician Assistant Medical
DX: I48.91 Unspecified atrial fibrillation (principal); R79.1 Abnormal coagulation profile; Z95.2 Presence of prosthetic heart valve; Z79.01 Long term (current) use of anticoagulants
CPT/HCPCS: 36415; 85610

== ENCOUNTER 2021-11-08 08:00 | Outpatient (CLI) | payer MEDICARE, OTHER | END 2021-11-08 23:59 | disposition home or self-care (01) | LOC: LAB.N 08:00 | PROVIDERS: ATTEND Physician Assistant Medical | DX: Z79.01 Long term (current) use of anticoagulants (principal); Z95.2 Presence of prosthetic heart valve; I48.91 Unspecified atrial fibrillation ==

== ENCOUNTER 2021-12-10 15:28 | Outpatient (CLI) | payer MEDICARE, OTHER ==
[2021-12-10 18:12] LABS: BASOPHILS # (AUTO) 0.1 10^3/uL (0.0-0.1); BASOPHILS % (AUTO) 1.8 %; EOSINOPHILS # (AUTO) 0.1 10^3/uL (0.0-0.7); EOSINOPHILS % (AUTO) 2.6 %; HCT - HEMATOCRIT 36.7 % (37.0-47.0); HGB - HEMOGLOBIN 10.8 g/dL (12.0-16.0); LYMPHOCYTES # (AUTO) 0.9 10^3/uL (1.5-3.5); LYMPHOCYTES % (AUTO) 22.5 %; MEAN CORPUSCULAR HEMOGLOBIN 26.9 pg (27.0-31.0); MEAN CORPUSCULAR HGB CONC 29.4 g/dL (32.0-36.0); MEAN CORPUSCULAR VOLUME 91.5 fL (81.0-99.0); MEAN PLATELET VOLUME 9.7 fL (7.9-10.8); MONOCYTES # (AUTO) 0.6 10^3/uL (0.0-1.0); MONOCYTES % (AUTO) 14.9 %; NEUTROPHILS # (AUTO) 2.2 10^3/uL (1.5-6.6); NEUTROPHILS % (AUTO) 57.4 %; PLT - PLATELET COUNT 308 10^3/uL (130-450); RED BLOOD COUNT 4.01 10^6/uL (4.20-5.40); RED CELL DISTRIBUTION WIDTH 16.1 % (12.0-15.0); WHITE BLOOD COUNT 3.8 x10^3/uL (4.8-10.8)
[2021-12-10 18:22] LABS: ALBUMIN/GLOBULIN RATIO 1.2 (1.0-2.2); ALKALINE PHOSPHATASE 140 IU/L (42-121); ALT ALANINE AMINOTRANSFERASE 19 IU/L (10-60); AST ASPARTATE AMINOTRANSFERASE 35 IU/L (10-42); BILIRUBIN,TOTAL 0.8 mg/dL (0.2-1.0); BUN - BLOOD UREA NITROGEN 29 mg/dL (6-20); CALCIUM 9.2 mg/dL (8.5-10.3); CARBON DIOXIDE - CO2 27 mmol/L (21-32); CHLORIDE 104 mmol/L (101-111); CHOL/HDL RATIO 2.4 (<4.4); CHOLESTEROL 161 mg/dL; CREATININE 0.9 mg/dL (0.4-1.0); GFR - MDRD 60 (>89); GLUCOSE 122 mg/dL (70-100); HDL CHOLESTEROL 66 mg/dL; LDL CHOLESTEROL,CALCULATED 86 mg/dL; LDL/HDL RATIO 1.3 (<4.4); POTASSIUM 4.5 mmol/L (3.5-5.0); SODIUM 139 mmol/L (135-145); TOTAL PROTEIN 7.3 g/dL (6.7-8.2); TRIGLYCERIDES 46 mg/dL; VLDL CHOLESTEROL 9 mg/dL
== END 2021-12-10 15:29 | disposition home or self-care (01) ==
LOC: LAB.N 15:28
PROVIDERS: ATTEND Physician Assistant Medical
DX: I10 Essential (primary) hypertension (principal); I48.91 Unspecified atrial fibrillation
CPT/HCPCS: 36415; 80053; 80061; 83721; 85025

== ENCOUNTER 2021-12-24 08:00 | Outpatient (CLI) | payer MEDICARE, OTHER | END 2021-12-24 23:59 | disposition home or self-care (01) | LOC: LAB.WCP 08:00 | PROVIDERS: ATTEND Family Medicine | DX: I48.91 Unspecified atrial fibrillation (principal); Z95.2 Presence of prosthetic heart valve; Z79.01 Long term (current) use of anticoagulants ==

== ENCOUNTER 2021-12-31 08:00 | Outpatient (CLI) | payer MEDICARE, OTHER | END 2021-12-31 23:59 | disposition home or self-care (01) | LOC: LAB.WCP 08:00 | PROVIDERS: ATTEND Family Medicine | DX: Z79.01 Long term (current) use of anticoagulants (principal); I48.91 Unspecified atrial fibrillation; Z95.2 Presence of prosthetic heart valve ==

== ENCOUNTER 2022-01-17 14:23 | Outpatient (CLI) | payer MEDICARE, OTHER ==
[2022-01-17 17:47] LABS: BASOPHILS # (AUTO) 0.1 10^3/uL (0.0-0.1); BASOPHILS % (AUTO) 1.8 %; EOSINOPHILS # (AUTO) 0.1 10^3/uL (0.0-0.7); EOSINOPHILS % (AUTO) 2.2 %; HCT - HEMATOCRIT 37.2 % (37.0-47.0); HGB - HEMOGLOBIN 11.1 g/dL (12.0-16.0); LYMPHOCYTES # (AUTO) 1.1 10^3/uL (1.5-3.5); LYMPHOCYTES % (AUTO) 22.1 %; MEAN CORPUSCULAR HEMOGLOBIN 26.4 pg (27.0-31.0); MEAN CORPUSCULAR HGB CONC 29.8 g/dL (32.0-36.0); MEAN CORPUSCULAR VOLUME 88.4 fL (81.0-99.0); MEAN PLATELET VOLUME 9.9 fL (7.9-10.8); MONOCYTES # (AUTO) 0.7 10^3/uL (0.0-1.0); NEUTROPHILS # (AUTO) 2.9 10^3/uL (1.5-6.6); NEUTROPHILS % (AUTO) 58.5 %; PLT - PLATELET COUNT 330 10^3/uL (130-450); RED BLOOD COUNT 4.21 10^6/uL (4.20-5.40); RED CELL DISTRIBUTION WIDTH 17.5 % (12.0-15.0); WHITE BLOOD COUNT 4.9 x10^3/uL (4.8-10.8)
[2022-01-17 18:18] LABS: CALCIUM 9.4 mg/dL (8.5-10.3); CREATININE 1.1 mg/dL (0.4-1.0); POTASSIUM 4.6 mmol/L (3.5-5.0)
== END 2022-01-17 14:24 | disposition home or self-care (01) ==
LOC: LAB.N 14:23
PROVIDERS: ATTEND Physician Assistant Medical
DX: D64.9 Anemia, unspecified (principal); R60.0 Localized edema
CPT/HCPCS: 36415; 80048; 85025

== ENCOUNTER 2022-01-20 16:10 | Outpatient (CLI) | payer MEDICARE, OTHER | END 2022-01-20 16:11 | disposition home or self-care (01) | LOC: LAB.N 16:10 | PROVIDERS: ATTEND Physician Assistant Medical | DX: Z79.01 Long term (current) use of anticoagulants (principal); I48.91 Unspecified atrial fibrillation; Z95.2 Presence of prosthetic heart valve | CPT/HCPCS: 36416; 85610 ==

== ENCOUNTER 2022-02-02 08:00 | Outpatient (CLI) | payer MEDICARE, OTHER | END 2022-02-02 08:01 | disposition home or self-care (01) | LOC: LAB.N 08:00 | PROVIDERS: ATTEND Physician Assistant Medical | DX: Z79.01 Long term (current) use of anticoagulants (principal); I48.91 Unspecified atrial fibrillation ==

== ENCOUNTER → 2022-02-23 | Outpatient (CLI) | payer MEDICARE, OTHER | LOC: LAB.WCP 08:00 | PROVIDERS: ATTEND Physician Assistant Medical | DX: I48.91 Unspecified atrial fibrillation (principal); Z95.2 Presence of prosthetic heart valve; Z79.01 Long term (current) use of anticoagulants ==

== ENCOUNTER → 2022-03-02 | Outpatient (CLI) | payer MEDICARE, OTHER | LOC: LAB.N 08:00 | PROVIDERS: ATTEND Physician Assistant Medical | DX: I48.91 Unspecified atrial fibrillation (principal); Z95.2 Presence of prosthetic heart valve; Z79.01 Long term (current) use of anticoagulants ==

== ENCOUNTER 2022-03-25 08:00 | Outpatient (CLI) | payer MEDICARE, OTHER | END 2022-03-25 23:59 | disposition home or self-care (01) | LOC: LAB.WCP 08:00 | PROVIDERS: ATTEND Family Medicine | DX: Z79.01 Long term (current) use of anticoagulants (principal); Z95.2 Presence of prosthetic heart valve ==

== ENCOUNTER 2022-03-25 19:57 | Emergency (ER) | payer MEDICARE, OTHER ==
--- NOTE | 2022-03-25 20:25 | ED Physician Documentation ---
PD HPI LOWER EXT INJURY - Stated complaint Stated Complaint: LT LEG SWELLING/SORE LEAKAGE - Chief complaint Chief Complaint: Ext Problem - History obtained from History obtained from: Patient - History of Present Illness PD HPI LOW EXT INJURY LOCATION: Right, Left, Lower leg, Ankle, Other (has had edema in both lower legs for the past few months, with increase the past few weeks. Had been Rx Lasix initially without improvement, and recently on Torsemide the past couple of weeks. Still with edema and PCP directed them to go to twice daily. Takes potassium just once daily.) Type of injury: Other (no noted injury. Went with spouse on plane flight travel to [place] and was more ambulatoryless leg elevation during the trip and had legs down of course for the [address]. Edema has increased recently and has blister areas left leg that are weeping fluid and have gotten red at edges.) Timing - onset: How many months ago Timing - duration: Months Timing - details: Gradual onset, Still present Improved by: Other (edema not as well improved with elevation.) Worsened by: Moving Associated symptoms: Swelling. No: Weakness, Numbness Similar symptoms before: Has not had sx before (had not had leg edema prior to the past few months. History of mitral valve dysfunction but no prior CHF.) Recently seen: Surgery (had mitral valve replacement in Sep 2021 without problems. On Coumadin.) Review of Systems Constitutional: denies: Fever, Chills Cardiac: reports: Pedal edema. denies: Chest pain / pressure, Palpitations, Calf pain Respiratory: reports: Dyspnea (with activity). 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 ) HEENT: Detached retina repair - Present Medications Home Medications: Ambulatory Orders Medication Instructions Recorded Confirmed Ascorbic Acid [Vitamin C] 500 mg 05/14/15 Aspirin [Moni Chewable Aspirin] 81 mg 05/14/15 Brimonidine Tartrate [Alphagan P] 03/31/16 Cholecalciferol (Vitamin D3) 1,000 unit 05/14/15 [Vitamin D] Dorzolamide HCl/Timolol Maleat 05/14/15 [Dorzolamide-Timolol Eye Drops] Duloxetine HCl [Cymbalta] 90 mg PO DAILY 05/14/15 10/07/21 Ipratropium [place] [Atrovent] 05/14/15 Warfarin Sodium [Coumadin] 5 mg 05/14/15 Zolpidem [Ambien] 10 mg 05/14/15 carvediloL [Carvedilol] 3.125 mg PO BID 02/22/17 02/22/17 cephALEXin [Keflex] 500 mg PO Q6H #28 cap 10/08/21 Doxycycline Hyclate 100 mg PO BID 7 Days #14 cap 03/25/22 Mupirocin 2% Oint [Bactroban 2% 1 applic TOP TID #15 gm 03/25/22 Oint] - Allergies Allergies/Adverse Reactions: Allergies Allergy/AdvReac Type Severity Reaction Status Date / Time No Known Drug Allergies Allergy Verified 03/25/22 20:10 - Social History Does the pt smoke?: No Smoking Status: Never smoker Does the pt drink ETOH?: Yes Does the pt have substance abuse?: No - Immunizations Immunizations are current?: Yes - POLST Patient has POLST: Yes PD ED PE NORMAL - Vitals Vital signs reviewed: Yes - General General: Alert and oriented X 3, No acute distress, Well developed/nourished - Cardiac Cardiac: RRR, Other (murmur heart left chest c/w mitral valve mechanical. ) - Respiratory Respiratory: No respiratory distress, Clear bilaterally - Abdomen Abdomen: Soft, Non tender - Derm Derm: Normal color, Warm and dry - Extremities Extremities: Normal ROM s pain, No calf tenderness / cord (She has edema in both legs but really no calf tenderness per se. There are several sores with the copious serous drainage on the anterior lower left leg with redness at the edges. No purulence. They are tender locally.), Other - Neuro Neuro: Alert and oriented X 3, No motor deficit, No sensory deficit, Normal speech Results - Vitals Vitals: Vital Signs - 24 hr 03/25/22 03/25/22 20:05 22:36 Temperature 36.2 C L Heart Rate 55 L 69 Respiratory 18 Rate Blood Pressure 129/81 H 137/75 H O2 Saturation 97 Oxygen O2 Source Room air - Labs Labs: Microbiology 03/25/22 20:46 Wound Culture - Preliminary Leg - Left Laboratory Tests 03/25/22 03/25/22 03/25/22 21:09 21:09 21:09 WBC 3.7 L RBC 4.11 L Hgb 10.8 L Hct 36.0 L MCV 87.6 MCH 26.3 L MCHC 30.0 L RDW 18.6 H Plt Count 227 MPV 9.7 Neut # (Auto) 2.1 Lymph # (Auto) 0.8 L B[place] # (Auto) 0.5 Eos # (Auto) 0.1 Baso # (Auto) 0.1 Absolute Nucleated RBC 0.00 Nucleated RBC % 0.0 Sodium 137 Potassium 3.3 L Chloride 101 Carbon Dioxide 23 Anion Gap 13.0 BUN 36 H Creatinine 1.0 Estimated GFR (MDRD) 53 L Glucose 153 H Calcium 9.0 Magnesium 2.1 Total Bilirubin 1.3 H AST 30 ALT 17 Alkaline Phosphatase 162 H B-Natriuretic Peptide 399 H Total Protein 7.3 Albumin 3.7 Globulin 3.6 Albumin/Globulin Ratio 1.0 Lipase 43 PD Medical Decision Making - ED course Complexity details: reviewed results (normal chemistry except for K 3.4, so can have them increase K supplement. Low WBC 3.7 and Hgb 10.8, but platelets nromal so not pancytopenic. Hgb about baseline compared to prior trend. ), considered differential (has had bilateral leg edema for few months and was Rx diuretics (Lasic initially then change to Torsemide when not improving on prior). Has K supplement with it. Pt has not noted improvement. Had flown to [place] and on trip there. More edema and weeping sores left lower leg now. ), d/w patient, d/w family ( told me they had INR checked this morning and it was 4.1) ED course: has had edema in both legs for months. Prior ECHO reported from patient's daughter (conveyed by spouse to me) is that the patient had right ventricle decreased function (right sided heart failure). This could account or leg eema bilaterally without really pulmonary edema symtoms. Also consider just dependent edema as patient says she does not elevate legs much during the day and had been on a trip this past week, so much more up on her feet. Had some mild weeping/blisters of legs prior to the trip. But much more weeping and some redness around several discrete red blotches. Serous drainage without purulence. Sample of fresh fluid at an ulcerative site was obtained. U/S of the legs without DVTs. The patient says she had her INR checked earlier today after returning from their trip. It was 4.1 and she was told to take 1/2 normal dose this evening. Otherwise to maintain Warfarin dosing for next few days and have INR recheck in 3-4 days as anticipate metabolic interaction with added antibiotics. Can keep on the torsemide which has just been for the past week or so, and was told to double it to twice daily after discussion with PCP earlier. Has good lung sounds and does not appear to be in CHF. The leg edema has been for months. But is worse lately with recent trip, and now redness of some weeping areas would be concerning for infection. She had been in [place] but was not walking in water nor around coral, so not likely different germs, but presume usual staph type infection. Departure - Departure Disposition: 01 Home, Self Care Clinical Impression: Bilateral leg edema, Leg sore Condition: Stable Record reviewed to determine appropriate education?: Yes Instructions: ED Staph Infec Abx Tx Only, ED Edema Legs Bilateral Follow-Up: Dori Witt PA-C [Primary Care Provider] - Prescriptions: Mupirocin 2% Oint [Bactroban 2% Oint] 1 applic TOP TID #15 gm Doxycycline Hyclate 100 mg PO BID 7 Days #14 cap Comments: Your ultrasound showed there were no blood clots in the legs. The swelling you have in the legs could represent a buildup of fluid in your system and therefore the recent addition of the torsemide diuretic is reasonable to continue. Your potassium is slightly low at 3.3 so I would suggest 2 of the potassium tablets with each torsemide dose. Continue other usual medicines. Do the half dose of your Coumadin/warfarin as directed earlier in the day. I would suggest a recheck of your pro time on Monday or Monday to ensure were not affecting it with the medication. Concern with the sores and redness on the left leg would be an infection developing on top of just the weeping from the edema. Use mupirocin antibiotic ointment twice daily to the areas as well as doxycycline oral antibiotic. I sent these prescriptions to [facility] in [place]. Elevate rest and some compression stockings or wraps to the legs to help with the swelling. Follow-up with your primary care if not improving well over the next several days and return if worse. Discharge Date/Time: 03/25/22 22:36
[2022-03-25] MEDS ORDERED: DOXYCYCLINE 100 MG TABLET PO STA (20:50)
[2022-03-25] MEDS ORDERED: MUPIROCIN 2% OINT 1 GM TOP STA (20:50)
[2022-03-25 21:13] LABS: BASOPHILS # (AUTO) 0.1 10^3/uL (0.0-0.1); BASOPHILS % (AUTO) 1.6 %; EOSINOPHILS # (AUTO) 0.1 10^3/uL (0.0-0.7); EOSINOPHILS % (AUTO) 2.5 %; HGB - HEMOGLOBIN 10.8 g/dL (12.0-16.0); LYMPHOCYTES # (AUTO) 0.8 10^3/uL (1.5-3.5); MEAN CORPUSCULAR HEMOGLOBIN 26.3 pg (27.0-31.0); MEAN CORPUSCULAR VOLUME 87.6 fL (81.0-99.0); MEAN PLATELET VOLUME 9.7 fL (7.9-10.8); MONOCYTES # (AUTO) 0.5 10^3/uL (0.0-1.0); MONOCYTES % (AUTO) 14.8 %; NEUTROPHILS # (AUTO) 2.1 10^3/uL (1.5-6.6); NEUTROPHILS % (AUTO) 57.8 %; PLT - PLATELET COUNT 227 10^3/uL (130-450); RED BLOOD COUNT 4.11 10^6/uL (4.20-5.40); RED CELL DISTRIBUTION WIDTH 18.6 % (12.0-15.0); WHITE BLOOD COUNT 3.7 x10^3/uL (4.8-10.8)
[2022-03-25 21:26] LABS: ALBUMIN 3.7 g/dL (3.2-5.5); BILIRUBIN,TOTAL 1.3 mg/dL (0.2-1.0); MAGNESIUM 2.1 mg/dL (1.7-2.8); POTASSIUM 3.3 mmol/L (3.5-5.0); TOTAL PROTEIN 7.3 g/dL (6.7-8.2)
[2022-03-25 22:38] VITALS: BP 137/75
--- NOTE | 2022-03-25 23:00 | Ultrasound Report ---
PROCEDURE: Duplex Ext Veins Bilateral INDICATIONS: John Lam TECHNIQUE: Real-time imaging, as well as color and pulse Doppler interrogation, were performed of the deep veins of both legs from the inguinal ligament to the popliteal fossa. COMPARISON: 03/05/2018. FINDINGS: The deep veins are normally compressible, and free of intraluminal thrombus. Color and pu lse Doppler demonstrate normal phasic intravascular flow. There is normal augmentation response to d istal compression maneuver. IMPRESSION: 1. No evidence of deep venous thrombosis in the right or left lower extremity. Reviewed by: Earl Porter MD on 03/25/2022 10:58 PM PST Approved by: Earl Porter MD on 03/25/2022 10:58 PM PST Station ID: [id number]
== END 2022-03-25 22:36 | disposition home or self-care (01) ==
LOC: ED 19:57
DX: R22.43 Localized swelling, mass and lump, lower limb, bilateral (principal); I50.9 Heart failure, unspecified; I48.91 Unspecified atrial fibrillation; Z79.01 Long term (current) use of anticoagulants; L98.9 Disorder of the skin and subcutaneous tissue, unspecified; Z95.2 Presence of prosthetic heart valve
CPT/HCPCS: 36415; 80053; 83690; 83735; 83880; 85025; 85610; 87070; 87181; 87205; 93970; 99284; A9270

== ENCOUNTER 2022-03-29 15:46 | Outpatient (CLI) | payer MEDICARE, OTHER ==
[2022-03-29 18:05] LABS: PT - PROTHROMBIN TIME 75.3 secs (9.9-12.6)
[2022-03-29 18:37] LABS: INR 7.7 (0.8-1.2)
== END 2022-03-29 15:47 | disposition home or self-care (01) ==
LOC: LAB.N 15:46
PROVIDERS: ATTEND Physician Assistant Medical
DX: I48.91 Unspecified atrial fibrillation (principal); Z95.2 Presence of prosthetic heart valve; Z79.01 Long term (current) use of anticoagulants
CPT/HCPCS: 36415; 36416; 85610

== ENCOUNTER 2022-04-01 08:00 | Outpatient (CLI) | payer MEDICARE, OTHER | END 2022-04-01 23:59 | disposition home or self-care (01) | LOC: LAB.WCP 08:00 | PROVIDERS: ATTEND Family Medicine | DX: Z79.01 Long term (current) use of anticoagulants (principal); I48.91 Unspecified atrial fibrillation ==

== ENCOUNTER 2022-04-07 21:13 | Outpatient (CLI) | payer MEDICARE, OTHER | END 2022-04-07 21:14 | disposition short-term general hospital (02) | LOC: EMS 21:13 | DX: R42 Dizziness and giddiness (principal); R53.83 Other fatigue; R11.0 Nausea; R41.0 Disorientation, unspecified; R61 Generalized hyperhidrosis; R00.1 Bradycardia, unspecified; R00.8 Other abnormalities of heart beat | CPT/HCPCS: A0425; A0427 ==

== ENCOUNTER 2022-04-13 08:00 | Outpatient (CLI) | payer MEDICARE, OTHER | END 2022-04-13 23:52 | disposition home or self-care (01) | LOC: LAB.N 08:00 | PROVIDERS: ATTEND Physician Assistant Medical | DX: I48.91 Unspecified atrial fibrillation (principal); Z79.01 Long term (current) use of anticoagulants; Z95.2 Presence of prosthetic heart valve ==

== ENCOUNTER 2022-04-18 11:27 | Outpatient (CLI) | payer MEDICARE, OTHER | END 2022-04-18 11:28 | disposition home or self-care (01) | LOC: LAB.N 11:27 | PROVIDERS: ATTEND Physician Assistant Medical | DX: I48.91 Unspecified atrial fibrillation (principal); Z95.2 Presence of prosthetic heart valve; Z79.01 Long term (current) use of anticoagulants | CPT/HCPCS: 36416; 85610 ==

== ENCOUNTER 2022-04-25 08:00 | Outpatient (CLI) | payer MEDICARE, OTHER | END 2022-04-25 23:59 | disposition home or self-care (01) | LOC: LAB.N 08:00 | PROVIDERS: ATTEND Physician Assistant Medical | DX: I48.91 Unspecified atrial fibrillation (principal); Z95.2 Presence of prosthetic heart valve; Z79.01 Long term (current) use of anticoagulants ==

== ENCOUNTER 2022-05-09 11:47 | Outpatient (CLI) | payer MEDICARE, OTHER ==
[2022-05-09 18:13] LABS: CALCIUM 8.8 mg/dL (8.5-10.3); POTASSIUM 3.6 mmol/L (3.5-5.0)
== END 2022-05-09 11:48 | disposition home or self-care (01) ==
LOC: LAB.N 11:47
PROVIDERS: ATTEND Internal Medicine Cardiovascular Disease
DX: I27.20 Pulmonary hypertension, unspecified (principal)
CPT/HCPCS: 36415; 80048

== ENCOUNTER 2022-05-23 08:00 | Outpatient (CLI) | payer MEDICARE, OTHER | END 2022-05-23 23:59 | disposition home or self-care (01) | LOC: LAB.N 08:00 | PROVIDERS: ATTEND Physician Assistant Medical | DX: I48.91 Unspecified atrial fibrillation (principal); Z79.01 Long term (current) use of anticoagulants; Z95.2 Presence of prosthetic heart valve ==

== ENCOUNTER 2022-05-27 08:00 | Outpatient (CLI) | payer MEDICARE, OTHER | END 2022-05-27 23:59 | disposition home or self-care (01) | LOC: LAB.N 08:00 | PROVIDERS: ATTEND Physician Assistant Medical | DX: Z79.01 Long term (current) use of anticoagulants (principal); Z95.2 Presence of prosthetic heart valve; I48.91 Unspecified atrial fibrillation ==

== ENCOUNTER 2022-06-01 08:00 | Outpatient (CLI) | payer MEDICARE, OTHER | END 2022-06-01 23:59 | disposition home or self-care (01) | LOC: LAB.WCP 08:00 | PROVIDERS: ATTEND Physician Assistant Medical | DX: L97.928 Non-pressure chronic ulcer of unspecified part of left lower leg with other specified severity (principal) | CPT/HCPCS: 87070; 87205 ==

== ENCOUNTER 2022-06-03 08:00 | Outpatient (CLI) | payer MEDICARE, OTHER | END 2022-06-03 23:59 | disposition home or self-care (01) | LOC: LAB.WCP 08:00 | PROVIDERS: ATTEND Family Medicine | DX: I48.91 Unspecified atrial fibrillation (principal); Z79.01 Long term (current) use of anticoagulants; Z95.2 Presence of prosthetic heart valve ==

== ENCOUNTER 2022-06-10 08:00 | Outpatient (CLI) | payer MEDICARE, OTHER | END 2022-06-10 23:59 | disposition home or self-care (01) | LOC: LAB.WCP 08:00 | PROVIDERS: ATTEND Family Medicine | DX: I48.91 Unspecified atrial fibrillation (principal); Z79.01 Long term (current) use of anticoagulants; Z95.2 Presence of prosthetic heart valve; Z51.81 Encounter for therapeutic drug level monitoring ==

== ENCOUNTER 2022-06-17 08:00 | Outpatient (CLI) | payer MEDICARE, OTHER | END 2022-06-17 23:59 | disposition home or self-care (01) | LOC: LAB.N 08:00 | PROVIDERS: ATTEND Physician Assistant Medical | DX: I48.91 Unspecified atrial fibrillation (principal); Z95.2 Presence of prosthetic heart valve; Z79.01 Long term (current) use of anticoagulants ==

== ENCOUNTER 2022-06-27 08:00 | Outpatient (CLI) | payer MEDICARE, OTHER | END 2022-06-27 23:59 | disposition home or self-care (01) | LOC: LAB.WCP 08:00 | PROVIDERS: ATTEND Family Medicine | DX: I48.91 Unspecified atrial fibrillation (principal); Z95.2 Presence of prosthetic heart valve ==

== ENCOUNTER 2022-07-01 08:00 | Outpatient (CLI) | payer MEDICARE, OTHER | END 2022-07-01 23:59 | disposition home or self-care (01) | LOC: LAB.N 08:00 | PROVIDERS: ATTEND Physician Assistant Medical | DX: I48.91 Unspecified atrial fibrillation (principal); Z79.01 Long term (current) use of anticoagulants; Z95.2 Presence of prosthetic heart valve ==

== ENCOUNTER 2022-08-03 10:44 | Outpatient (CLI) | payer MEDICARE, OTHER | END 2022-08-03 10:45 | disposition home or self-care (01) | LOC: DI 10:44 | PROVIDERS: ATTEND Family Medicine | DX: I07.1 Rheumatic tricuspid insufficiency (principal); R60.0 Localized edema; Z95.2 Presence of prosthetic heart valve | CPT/HCPCS: 93306 ==

== ENCOUNTER 2022-08-05 08:00 | Outpatient (CLI) | payer MEDICARE, OTHER | END 2022-08-05 23:59 | disposition home or self-care (01) | LOC: LAB.N 08:00 | PROVIDERS: ATTEND Physician Assistant Medical | DX: I48.91 Unspecified atrial fibrillation (principal); Z79.01 Long term (current) use of anticoagulants; Z95.2 Presence of prosthetic heart valve ==

== ENCOUNTER 2022-08-12 08:00 | Outpatient (CLI) | payer MEDICARE, OTHER | END 2022-08-12 23:59 | disposition home or self-care (01) | LOC: LAB.N 08:00 | PROVIDERS: ATTEND Physician Assistant Medical | DX: Z79.01 Long term (current) use of anticoagulants (principal); I48.91 Unspecified atrial fibrillation; Z95.2 Presence of prosthetic heart valve ==

== ENCOUNTER 2022-08-22 08:00 | Outpatient (CLI) | payer MEDICARE, OTHER | END 2022-08-22 23:59 | disposition home or self-care (01) | LOC: LAB.N 08:00 | PROVIDERS: ATTEND Physician Assistant Medical | DX: Z79.01 Long term (current) use of anticoagulants (principal); I48.91 Unspecified atrial fibrillation; Z95.2 Presence of prosthetic heart valve ==

== ENCOUNTER 2022-09-05 11:13 | Outpatient (CLI) | payer MEDICARE, OTHER ==
[2022-09-05 18:36] LABS: CALCIUM 9.3 mg/dL (8.5-10.3); CREATININE 1.1 mg/dL (0.6-1.3); POTASSIUM 3.8 mmol/L (3.5-4.5)
== END 2022-09-05 11:14 | disposition home or self-care (01) ==
LOC: LAB.N 11:13
PROVIDERS: ATTEND Physician Assistant Medical
DX: I50.812 Chronic right heart failure (principal); I27.20 Pulmonary hypertension, unspecified; Z95.2 Presence of prosthetic heart valve; I48.91 Unspecified atrial fibrillation; Z79.01 Long term (current) use of anticoagulants
CPT/HCPCS: 36415; 80048

== ENCOUNTER 2022-09-16 12:51 | Emergency (ER) | payer MEDICARE, OTHER ==
[2022-09-16 13:21] VITALS: BP 113/82
--- NOTE | 2022-09-16 13:36 | ED Physician Documentation ---
PD HPI UPPER EXT INJURY - Stated complaint Stated Complaint: BLEEDING FROM SX SITE - Chief complaint Chief Complaint: Ext Problem - History obtained from History obtained from: Patient, Family () - History of Present Illness Location: Right, Arm Type of injury: Puncture wound (she had heart cath via right brachial vein approach (right heart cath per discharge instructions/records pt has with her, so would hav ebeen venous puncture to approach the right heart/ pulmonary artery). Done at [facility] a few hours ago.) Where injury occurred: Other ([facility]) Timing - onset: How many hours ago (patient with right heart cath a couple hours ago in [place]. Enroute home the patient noted some blood dripping from under the bandage on the puncture sight right upper arm. drove her directly to ER here.) Timing - details: No: Still present (it does not seem to still have bleeding ongoing but dressing is completely red.) Associated symptoms: No: Weakness, Numbness Contributing factors: No: Anticoagulated (was on coumadin for atrial fib, but was held the past 5 days per direction prior to her heart cath.) Recently seen: Surgery (had right heart cath earlier today.) Review of Systems Neurologic: denies: Generalized weakness, Focal weakness, Numbness, Near syncope PD PAST MEDICAL HISTORY - Past Medical History Cardiovascular: Congestive heart failure, Atrial flutter, Atrial fibrillation, Valve disorder Respiratory: Sleep apnea Endocrine/Autoimmune: None GI: None : None HEENT: Glaucoma, Other Psych: None Musculoskeletal: Osteoarthritis Derm: None - Past Surgical History 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 ) HEENT: Detached retina repair - Present Medications Home Medications: Ambulatory Orders Medication Instructions Recorded Confirmed Aspirin [Moni Chewable Aspirin] 81 mg PO DAILY 05/14/15 06/09/22 Cholecalciferol (Vitamin D3) 1,000 unit OP DAILY 05/14/15 06/09/22 [Vitamin D] Dorzolamide HCl/Timolol Maleat 1 drops EACHEYE BID 05/14/15 06/09/22 [Dorzolamide-Timolol Eye Drops] Duloxetine HCl [Cymbalta] 90 mg PO DAILY 05/14/15 06/09/22 Ipratropium Ennice [Atrovent] 2 sprays BID 05/14/15 06/09/22 Warfarin Sodium [Coumadin] 5 mg PO DAILY 05/14/15 06/09/22 Mupirocin 2% Oint [Bactroban 2% 1 applic TOP TID #15 gm 03/25/22 06/09/22 Oint] Brimonidine 0.15% Ophth Drops 1 drops OP BID 06/09/22 06/09/22 [Alphagan P 0.15% Ophth Drops] Cyanocobalamin [Vitamin B-12] 1,000 mcg PO DAILY 06/09/22 06/09/22 Fluticasone Propionate [Flovent 1 spray IH DAILY 06/09/22 06/09/22 Diskus] Lactobacill 46/B.animal/Inulin 1 cap PO DAILY 06/09/22 06/09/22 [Probiotic-10 10 Bill Cell Cap] Losartan Potassium 25 mg PO DAILY 06/09/22 06/09/22 Mirtazapine 7.5 mg PO PRN PRN 06/09/22 06/09/22 Multivitamin 1 tab PO DAILY 06/09/22 06/09/22 Travoprost [Travatan Z] 1 drops OP DAILY 06/09/22 06/09/22 busPIRone [Buspar] 10 mg PO BID 06/09/22 06/09/22 Doxycycline Monohydrate 100 mg PO BID 10 Days #20 cap 06/21/22 06/28/22 Gentamicin Sulfate See Rx Instructions .ROUTE 08/09/22 .COMPLEX #60 gm HYDROcod/ACETAM 5/325 [[place] 5/325] 1 - 2 tablet PO Q6H PRN #14 tablet 08/15/22 Potassium Chloride [K-Dur] 20 meq PO BID 08/25/22 08/25/22 Torsemide 40 mg PO BID 08/25/22 08/30/22 - Allergies Allergies/Adverse Reactions: Allergies Allergy/AdvReac Type Severity Reaction Status Date / Time No Known Drug Allergies Allergy Verified 03/25/22 20:10 - Social History Does the pt smoke?: No Smoking Status: Never smoker Does the pt drink ETOH?: Yes Does the pt have substance abuse?: No - Immunizations Immunizations are current?: Yes - POLST Patient has POLST: Yes PD ED PE NORMAL - Vitals Vital signs reviewed: Yes - General General: Alert and oriented X 3, No acute distress, Well developed/nourished - Derm Derm: Normal color, Warm and dry - Extremities Extremities: Other (the bandage on right upper arm is completely red with blood but is only a rounded 2 inch pad. Some blood streak dried to medial upper arm outside of tegaderm dressing over it. ) - Neuro Neuro: Alert and oriented X 3, No motor deficit, Normal speech Results - Vitals Vitals: Vital Signs - 24 hr 09/16/22 13:15 Temperature 36.4 C L Heart Rate 65 Respiratory 18 Rate Blood Pressure 113/82 H O2 Saturation 99 Oxygen O2 Source Room air PD Medical Decision Making - ED course Complexity details: considered differential (bleeding through bandage over upper arm puncture site from right heart cath earlier today. I removed the dressing and the puncture site is clean without any ongoing bleeding. I had her move arm and pull/push gently at elbow without any starting of bleeding. ), d/w patient Drug Therapy Requiring Monitoring for Toxicity: the bleeding was stopped at this time. I did apply a cotton ball with some TXA 3 ml fluid on it over the site, then small telfa, and then Tegaderm, as it had had on it. Then a wrap applied over this by nursing. Departure - Departure Disposition: 01 Home, Self Care Clinical Impression: Postoperative bleeding from incision Condition: Stable Record reviewed to determine appropriate education?: Yes Follow-Up: Dori Witt PA-C [Primary Care Provider] - Chinedu Ferro MD [Physician No Access] - Comments: The site is not bleeding at this time. I did replace the dressing with cotton ball that has some medication on it to promote clotting. It then has the Tegaderm dressing over it like it had before. 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 We did put a wrap over that as well and that portion can be taken off later today or tomorrow. Forms: PCP List Discharge Date/Time: 09/16/22 13:55
== END 2022-09-16 13:55 | disposition home or self-care (01) ==
LOC: ED 12:51
DX: L76.22 Postprocedural hemorrhage of skin and subcutaneous tissue following other procedure (principal)
CPT/HCPCS: 99282; 99283

== ENCOUNTER 2022-10-03 08:00 | Outpatient (CLI) | payer MEDICARE, OTHER | END 2022-10-03 23:59 | disposition home or self-care (01) | LOC: LAB.N 08:00 | PROVIDERS: ATTEND Physician Assistant Medical | DX: Z79.01 Long term (current) use of anticoagulants (principal); I48.91 Unspecified atrial fibrillation ==

== ENCOUNTER 2022-10-10 08:00 | Outpatient (CLI) | payer MEDICARE, OTHER | END 2022-10-10 23:59 | disposition home or self-care (01) | LOC: LAB.N 08:00 | PROVIDERS: ATTEND Physician Assistant Medical | DX: Z95.2 Presence of prosthetic heart valve (principal); Z79.01 Long term (current) use of anticoagulants; I48.91 Unspecified atrial fibrillation ==

== ENCOUNTER 2022-11-23 08:00 | Outpatient (CLI) | payer MEDICARE, OTHER | END 2022-11-23 23:59 | disposition home or self-care (01) | LOC: LAB.WCP 08:00 | PROVIDERS: ATTEND Physician Assistant Medical | DX: I82.409 Acute embolism and thrombosis of unspecified deep veins of unspecified lower extremity (principal); Z95.2 Presence of prosthetic heart valve; Z79.01 Long term (current) use of anticoagulants; I48.91 Unspecified atrial fibrillation ==

== ENCOUNTER 2022-11-30 08:00 | Outpatient (CLI) | payer MEDICARE, OTHER | END 2022-11-30 23:59 | disposition home or self-care (01) | LOC: LAB.N 08:00 | PROVIDERS: ATTEND Physician Assistant Medical | DX: Z79.01 Long term (current) use of anticoagulants (principal); I82.409 Acute embolism and thrombosis of unspecified deep veins of unspecified lower extremity; I48.91 Unspecified atrial fibrillation ==

== ENCOUNTER 2022-12-02 08:00 | Outpatient (CLI) | payer MEDICARE, OTHER | END 2022-12-02 23:59 | disposition home or self-care (01) | LOC: LAB.WCP 08:00 | PROVIDERS: ATTEND Physician Assistant Medical | DX: Z79.01 Long term (current) use of anticoagulants (principal); I82.409 Acute embolism and thrombosis of unspecified deep veins of unspecified lower extremity; Z95.2 Presence of prosthetic heart valve; I48.91 Unspecified atrial fibrillation ==

== ENCOUNTER 2023-01-02 08:00 | Outpatient (CLI) | payer MEDICARE, OTHER | END 2023-01-02 23:59 | disposition home or self-care (01) | LOC: LAB.N 08:00 | PROVIDERS: ATTEND Physician Assistant Medical | DX: I82.409 Acute embolism and thrombosis of unspecified deep veins of unspecified lower extremity (principal); I48.91 Unspecified atrial fibrillation; Z79.01 Long term (current) use of anticoagulants; Z95.2 Presence of prosthetic heart valve ==

== ENCOUNTER 2023-01-16 10:01 | Outpatient (CLI) | payer MEDICARE, OTHER ==
[2023-01-16 12:39] LABS: ALBUMIN 4.2 g/dL (3.2-5.5); ALBUMIN/GLOBULIN RATIO 1.5 (1.0-2.2); ALKALINE PHOSPHATASE 186 IU/L (42-121); ALT ALANINE AMINOTRANSFERASE 15 IU/L (10-60); AST ASPARTATE AMINOTRANSFERASE 26 IU/L (10-42); BILIRUBIN,TOTAL 0.7 mg/dL (0.2-1.0); BUN - BLOOD UREA NITROGEN 40 mg/dL (6-20); CALCIUM 9.7 mg/dL (8.5-10.3); CARBON DIOXIDE - CO2 28 mmol/L (21-32); CHLORIDE 103 mmol/L (101-111); CHOL/HDL RATIO 3.1 (<4.4); CHOLESTEROL 198 mg/dL; CREATININE 1.4 mg/dL (0.6-1.3); GFR - MDRD 36 (>89); GLUCOSE 116 mg/dL (74-104); HDL CHOLESTEROL 63 mg/dL; LDL CHOLESTEROL,CALCULATED 120 mg/dL; LDL/HDL RATIO 1.9 (<4.4); POTASSIUM 3.7 mmol/L (3.5-4.5); SODIUM 141 mmol/L (135-145); TRIGLYCERIDES 75 mg/dL (48-352); VLDL CHOLESTEROL 15 mg/dL
== END 2023-01-16 10:02 | disposition home or self-care (01) ==
LOC: LAB.N 10:01
PROVIDERS: ATTEND Physician Assistant Medical
DX: R73.9 Hyperglycemia, unspecified (principal); I48.91 Unspecified atrial fibrillation; I10 Essential (primary) hypertension
CPT/HCPCS: 36415; 80053; 80061; 83721

== ENCOUNTER 2023-02-20 11:27 | Outpatient (CLI) | payer MEDICARE, OTHER ==
--- NOTE | 2023-02-21 10:41 | Mammography Report ---
BILATERAL DIGITAL SCREENING MAMMOGRAM: 02/20/2023 CLINICAL: Routine screening. Comparison is made to exams dated: 06/17/2021 mammogram, 11/13/2019 mammogram, 07/31/2018 mammogram, 08/13 mammogram, 07/20/2015 mammogram, and 04/02/2014 ultrasound - [facility]. There are scattered areas of fibroglandular density in both breasts (category b / 25%-50% glandular t issue). There are benign vascular calcifications in both breasts. No significant masses, calcifications, or other findings are seen in either breast. There has been no significant interval change. IMPRESSION: BENIGN There is no mammographic evidence of malignancy. A 1 year screening mammogram is recommended. Based on the Tyrer Cuzick model (a risk assessment model) the patients lifetime risk is 0.4% and her 10 year risk is 0.0%. According to the ACR, ACS, and NCCN guidelines, an annual breast MRI exam raul g with mammogram is recommended if the patients lifetime risk is 20% or greater. This exam was interpreted at Station ID: [id number]. NOTE: For mammograms, a report in lay terms will be sent to the patient. Approximately 15% of breast malignancies will not be visualized mammographically. In the management of a palpable breast mass, a negative mammogram must not discourage biopsy of a clinically suspicious lesion. Electronically Signed By: Elvira maldonado/guzman:02/20/2023 12:48:07 letter sent: No_Letter ACR BI-RADS Category 2: Benign Finding(s) 3342F PARENCHYMAL PATTERN: (A) - The breast(s) demonstrate(s) scattered fibroglandular densities. BI-RADS CATEGORY: (2) - 2 Mammogram [id number] 1 year screening LATERALITY: (B)
== END 2023-02-20 11:28 | disposition home or self-care (01) ==
LOC: DI.N 11:27
DX: Z12.31 Encounter for screening mammogram for malignant neoplasm of breast (principal); R92.323 Mammographic fibroglandular density, bilateral breasts; R92.1 Mammographic calcification found on diagnostic imaging of breast

== ENCOUNTER 2023-03-17 08:00 | Outpatient (CLI) | payer MEDICARE, OTHER | END 2023-03-17 08:01 | disposition home or self-care (01) | LOC: LAB.N 08:00 | PROVIDERS: ATTEND Physician Assistant Medical | DX: I48.91 Unspecified atrial fibrillation (principal); I82.409 Acute embolism and thrombosis of unspecified deep veins of unspecified lower extremity; Z95.2 Presence of prosthetic heart valve; Z79.01 Long term (current) use of anticoagulants ==

== ENCOUNTER → 2023-03-24 | Outpatient (CLI) | payer MEDICARE, OTHER | LOC: LAB.N 08:00 | PROVIDERS: ATTEND Physician Assistant Medical | DX: I82.409 Acute embolism and thrombosis of unspecified deep veins of unspecified lower extremity (principal); Z95.2 Presence of prosthetic heart valve; Z79.01 Long term (current) use of anticoagulants ==

== ENCOUNTER 2023-04-12 08:00 | Outpatient (CLI) | payer MEDICARE, OTHER | END 2023-04-12 08:01 | disposition home or self-care (01) | LOC: LAB.N 08:00 | PROVIDERS: ATTEND Physician Assistant Medical | DX: I48.91 Unspecified atrial fibrillation (principal); Z95.2 Presence of prosthetic heart valve; Z79.01 Long term (current) use of anticoagulants; I82.409 Acute embolism and thrombosis of unspecified deep veins of unspecified lower extremity ==

== ENCOUNTER 2023-04-19 14:14 | Outpatient (CLI) | payer MEDICARE, OTHER ==
[2023-04-19 17:53] LABS: CALCIUM 9.2 mg/dL (8.5-10.3); CREATININE 1.3 mg/dL (0.6-1.3); POTASSIUM 4.2 mmol/L (3.5-4.5)
== END 2023-04-19 14:15 | disposition home or self-care (01) ==
LOC: LAB.N 14:14
PROVIDERS: ATTEND Physician Assistant Medical
DX: N18.9 Chronic kidney disease, unspecified (principal)
CPT/HCPCS: 36415; 80048

== ENCOUNTER 2023-04-26 08:00 | Outpatient (CLI) | payer MEDICARE, OTHER | END 2023-04-26 08:01 | disposition home or self-care (01) | LOC: LAB.N 08:00 | PROVIDERS: ATTEND Physician Assistant Medical | DX: I82.409 Acute embolism and thrombosis of unspecified deep veins of unspecified lower extremity (principal); Z95.2 Presence of prosthetic heart valve; Z79.01 Long term (current) use of anticoagulants; I48.91 Unspecified atrial fibrillation ==

== ENCOUNTER → 2023-05-03 | Outpatient (CLI) | payer MEDICARE, OTHER | LOC: LAB.N 08:00 | PROVIDERS: ATTEND Physician Assistant Medical | DX: I82.409 Acute embolism and thrombosis of unspecified deep veins of unspecified lower extremity (principal); Z95.2 Presence of prosthetic heart valve; Z79.01 Long term (current) use of anticoagulants; I48.91 Unspecified atrial fibrillation ==

== ENCOUNTER 2023-05-05 16:06 | Outpatient (CLI) | payer MEDICARE, OTHER ==
--- NOTE | 2023-05-05 16:59 | Ultrasound Report ---
PROCEDURE: Renal (Retroperitoneal) INDICATIONS: RENAL INSUFFICIENCY TECHNIQUE: Real-time scanning was performed of the retroperitoneal organs, with image documentation. COMPARISON: 06/18/2016. FINDINGS: Kidneys: Left kidney is now small and right kidney is now borderline small.. Right kidney measures 9 .3 cm long; left kidney measures 8.2 cm long. Right renal cortical thickness is 0.8 cm; left renal c ortical thickness is 0.7 cm. On the previous study, the right kidney was 10.5 cm and the left kidney was 11.1 cm. Left kidney may have an extrarenal pelvis. No stones or masses identified. Bladder: Pre-void bladder volume is 562.75 mL. Post-void residual is 58.6 mL. Pre-void images demo nstrate no intraluminal masses or stones. On pre-void images, bilateral ureteral jets are noted with color Doppler interrogation. (Of note, ureteral jets may not be detectable in up to 25% of cases du e to insufficient differences in specific gravity between ureteral and bladder urine). Miscellaneous: No free abdominal fluid. IMPRESSION: Both kidneys are diminished in size compared to the previous study. Right kidney is borderline small on the left kidney is small. Lower limits of normal is 9.0 cm. Question extrarenal pelvis on the left. Reviewed by: Newton Smith MD on 05/05/2023 4:58 PM PDT Approved by: Newton Smith MD on 05/05/2023 4:58 PM PDT Station ID: [id number]
== END 2023-05-05 16:07 | disposition home or self-care (01) ==
LOC: DI 16:06
PROVIDERS: ATTEND Physician Assistant Medical
DX: N18.9 Chronic kidney disease, unspecified (principal)

== ENCOUNTER → 2023-05-12 | Outpatient (CLI) | payer MEDICARE, OTHER | LOC: LAB.WCP 08:00 | PROVIDERS: ATTEND Physician Assistant Medical | DX: I82.409 Acute embolism and thrombosis of unspecified deep veins of unspecified lower extremity (principal); Z95.2 Presence of prosthetic heart valve; Z79.01 Long term (current) use of anticoagulants; I48.91 Unspecified atrial fibrillation ==

== ENCOUNTER → 2023-06-16 | Outpatient (CLI) | payer MEDICARE, OTHER | LOC: LAB.WCP 08:00 | PROVIDERS: ATTEND Physician Assistant Medical | DX: I82.90 Acute embolism and thrombosis of unspecified vein (principal); Z95.2 Presence of prosthetic heart valve; Z79.01 Long term (current) use of anticoagulants; I48.91 Unspecified atrial fibrillation ==

== ENCOUNTER 2023-07-17 11:38 | Outpatient (CLI) | payer MEDICARE, OTHER | END 2023-07-17 11:39 | disposition home or self-care (01) | LOC: LAB.N 11:38 | PROVIDERS: ATTEND Physician Assistant Medical | DX: Z53.9 Procedure and treatment not carried out, unspecified reason (principal) ==

== ENCOUNTER 2023-07-31 10:42 | Outpatient (CLI) | payer MEDICARE, OTHER ==
[2023-07-31 17:44] LABS: BASOPHILS # (AUTO) 0.1 10^3/uL (0.0-0.1); BASOPHILS % (AUTO) 1.6 %; EOSINOPHILS # (AUTO) 0.1 10^3/uL (0.0-0.7); EOSINOPHILS % (AUTO) 1.6 %; HCT - HEMATOCRIT 37.3 % (37.0-47.0); HGB - HEMOGLOBIN 10.9 g/dL (12.0-16.0); LYMPHOCYTES # (AUTO) 0.7 10^3/uL (1.5-3.5); LYMPHOCYTES % (AUTO) 19.5 %; MEAN CORPUSCULAR HEMOGLOBIN 25.1 pg (27.0-31.0); MEAN CORPUSCULAR HGB CONC 29.2 g/dL (32.0-36.0); MEAN CORPUSCULAR VOLUME 85.7 fL (81.0-99.0); MEAN PLATELET VOLUME 10.3 fL (7.9-10.8); MONOCYTES # (AUTO) 0.5 10^3/uL (0.0-1.0); MONOCYTES % (AUTO) 13.4 %; NEUTROPHILS # (AUTO) 2.3 10^3/uL (1.5-6.6); NEUTROPHILS % (AUTO) 63.9 %; PLT - PLATELET COUNT 365 10^3/uL (130-450); RED BLOOD COUNT 4.35 10^6/uL (4.20-5.40); RED CELL DISTRIBUTION WIDTH 15.9 % (12.0-15.0); WHITE BLOOD COUNT 3.7 x10^3/uL (4.8-10.8)
[2023-07-31 17:55] LABS: CREATININE,URINE 66.4 mg/dL; PROTEIN/CREATININE RATIO,URINE 0.1 (<=0.2)
[2023-07-31 17:57] LABS: CALCIUM 9.5 mg/dL (8.5-10.3); CREATININE 1.3 mg/dL (0.6-1.3); PHOSPHORUS 3.4 mg/dL (2.5-5.0); POTASSIUM 3.7 mmol/L (3.5-4.5)
== END 2023-07-31 10:43 | disposition home or self-care (01) ==
LOC: LAB.N 10:42
PROVIDERS: ATTEND Internal Medicine Nephrology
DX: N05.9 Unspecified nephritic syndrome with unspecified morphologic changes (principal); I50.32 Chronic diastolic (congestive) heart failure; N25.81 Secondary hyperparathyroidism of renal origin; E83.30 Disorder of phosphorus metabolism, unspecified; R80.9 Proteinuria, unspecified; D70.9 Neutropenia, unspecified; D63.1 Anemia in chronic kidney disease
CPT/HCPCS: 36415; 80048; 82570; 83880; 83970; 84100; 84156; 85025

== ENCOUNTER 2023-10-23 15:01 | Outpatient (CLI) | payer MEDICARE, OTHER ==
--- NOTE | 2023-10-24 17:30 | DEXA Report ---
PROCEDURE: Dexa Spine and/or Hip INDICATIONS: POST MENOPAUSAL TECHNIQUE: Dual energy x-ray absorptiometry (DXA) was performed on a [employer] System. Regions measur ed are the AP Spine, femoral neck, and if needed forearm. COMPARISON: DEXA on September 13, 2019. Hip radiograph on October 22, 2021. FINDINGS: Lumbar Spine: Bone Mineral Density: 1.402 g/cm/cm,T score: 1.9. Since the most recent prior study, there has been a statistically significant decrease in bone mineral density by 5.9 percent. Left Hip: There has been an interval left hip replacement since prior DEXA dated September 13, 2019 Right Femoral Neck: Bone Mineral Density: 0.843 g/cm/cm, T score: -1.4. Right hip: Bone Mineral Density: 0.843 g/cm/cm,T score: -1.4. (T score greater or equal to -1.0: NORMAL) (T score from -1.1 to -2.4: OSTEOPENIA) (T score less than or equal to -2.5 to: OSTEOPOROSIS) Impression: By WHO criteria, this patient has low bone density (osteopenia). Interval statistical decrease in bone mineral density of the lumbar spine. There has been an interval left hip replacement since prior DEXA; therefore, measurements were based on the right hip. Patients with diagnosis of osteoporosis or osteopenia should have regular bone mineral density assess ment. For those eligible for Medicare, routine testing is allowed once every 2 years. Testing frequ ency can be increased for patients who have rapidly progressing disease or for those who are receivin g medical therapy to restore bone mass. Reviewed by: Myla Marshall MD on 10/24/2023 5:29 PM PDT Approved by: Myla Marshall MD on 10/24/2023 5:29 PM PDT Station ID: [id number]
== END 2023-10-23 15:02 | disposition home or self-care (01) ==
LOC: DI 15:01
PROVIDERS: ATTEND Physician Assistant Medical
DX: M85.89 Other specified disorders of bone density and structure, multiple sites (principal); Z78.0 Asymptomatic menopausal state